=== PATIENT | male | born 1960 | race Caucasian/White ===

== ENCOUNTER 2019-01-31 06:24 | Emergency (ER) | payer BC ==
[~2019-01-31] VITALS: Ht 175.3 cm; Wt 117.9 kg
--- OUTSIDE RECORDS SUMMARY | ~2019-01-31 | XMS | Clinical Summary ---
Demographics + + + | Address | [address] [place] [address] | | | [place] [address] | + + + | Home Phone | | + + + | Preferred Language | Unknown | + + + | Marital Status | | + + + | Congregational Affiliation | Unknown | + + + | Race | Unknown | + + + | Ethnic Group | Unknown | + + + Author + + + | Author | [facility] | | | and [place] | + + + | Organization | [facility] | | | and [place] | + + + | Address | Unknown | + + + | Phone | Unavailable | + + + Support + + +---------+ + | Name | Relationship | Address | Phone | + + +---------+ + | Tata Maza ECON | Unknown | | + + +---------+ + Care Team Providers + +------+ + | Care Apparel Manufacture Instructor Name | Role | Phone | + +------+ + | Quinn Gabriel MD | PCP | | + +------+ + Allergies + + + + + + | Active Allergy | Reactions | Severity | Noted | Comments | | | | | Date | | + + + + + + | Meperidine | | | 06/28/19 | | | | | | 17 | | + + + + + + | Morphine | | | 06/28/19 | | | | | | 17 | | + + + + + + Medications + + + +---------+------+------+-------+ | Medication | Sig | Dispensed | Refills | Star | End | Statu | | | | | | t | Date | s | | | | | | Date | | | + + + +---------+------+------+-------+ | atorvaSTATin | TK 1 T PO QD | | 2 | 03/1 | | Activ | | (LIPITOR) 10 mg | | | | 5/20 | | e | | tablet | | | | 17 | | | + + + +---------+------+------+-------+ | Blood Glucose | USE DIRECTED | | 0 | 04/1 | | Activ | | Monitoring Suppl | | | | 1/20 | | e | | (ONE TOUCH ULTRA 2) | | | | 17 | | | | w/Device KIT | | | | | | | + + + +---------+------+------+-------+ | doxycycline | TK 1 C PO BID | | 3 | 03/2 | | Activ | | (VIBRAMYCIN) 100 mg | | | | /20 | | e | | capsule | | | | 17 | | | + + + +---------+------+------+-------+ | glimepiride | TK 1 T PO BID | | 2 | 03/1 | | Activ | | (AMARYL) 4 mg tablet | | | | 20 | | e | | | | | | 17 | | | + + + +---------+------+------+-------+ | ONE TOUCH ULTRA | USE TO TEST BLOOD | | 3 | 04/1 | | Activ | | TEST strip | GLUCOSE TID | | | /20 | | e | | | | | | 17 | | | + + + +---------+------+------+-------+ | HUMULIN 70/30 | Inject 50 Units | | 0 | 04/2 | | Activ | | KWIKPEN (70-30) 100 | under the skin 2 | | | 0/20 | | e | | UNIT/ML injection | times daily (before | | | 17 | | | | pen | meals). | | | | | | + + + +---------+------+------+-------+ | losartan (COZAAR) | TK 1 T PO QD | | 2 | 03/1 | | Activ | | 100 MG tablet | | | | 5/20 | | e | | | | | | 17 | | | + + + +---------+------+------+-------+ | metFORMIN | TK 2 TS PO BID | | 2 | 03/1 | | Activ | | (GLUCOPHAGE-XR) 500 | | | | 5/20 | | e | | mg 24 hr tablet | | | | 17 | | | + + + +---------+------+------+-------+ | omeprazole | TK 2 CS PO ONCE D | | 3 | 02/2 | | Activ | | (PRILOSEC) 20 mg | | | | 7/20 | | e | | capsule | | | | 17 | | | + + + +---------+------+------+-------+ | pioglitazone | TK 1 T PO QD | | 3 | 03/2 | | Activ | | (ACTOS) 45 mg tablet | | | | 20 | | e | | | | | | 17 | | | + + + +---------+------+------+-------+ | tamsulosin | TK 1 C PO BID | | 11 | 03/2 | | Activ | | (FLOMAX) 0.4 mg CAPS | | | | 20 | | e | | | | | | 17 | | | + + + +---------+------+------+-------+ | traZODone | TK 1 TO 2 TS PO QHS | | 3 | 04/1 | | Activ | | (DESYREL) 100 mg | PRF INSOMNIA | | | 20 | | e | | tablet | | | | 17 | | | + + + +---------+------+------+-------+ | aspirin 325 mg | Take 325 mg by mouth | | 0 | | | Activ | | tablet | Daily. | | | | | e | + + + +---------+------+------+-------+ | ibuprofen | Take 800 mg by mouth | | 0 | | | Activ | | (ADVIL,MOTRIN) 800 | every 6 hours as | | | | | e | | MG tablet | needed for Pain. | | | | | | + + + +---------+------+------+-------+ | phentermine | Take 37.5 mg by | | 0 | | | Activ | | (ADIPEX-P) 37.5 mg | mouth every morning | | | | | e | | tablet | (before breakfast). | | | | | | + + + +---------+------+------+-------+ | sildenafil | Take 100 mg by mouth | | 0 | | | Activ | | (VIAGRA) 100 MG | as needed for | | | | | e | | tablet | Erectile | | | | | | | | Dysfunction. | | | | | | + + + +---------+------+------+-------+ | Continuous Blood | USE DAILY | | 3 | 12/1 | | Activ | | Gluc Sensor | DIRECTED | | | 3/20 | | e | | (FREESTYLE ELIANA 14 | | | | 18 | | | | DAY SENSOR) MISC | | | | | | | + + + +---------+------+------+-------+ | Continuous Blood | USE DIRECTED | | 11 | 12/ | | Activ | | Gluc Ict Customer Support Officer | | | | 20 | | e | | (FREESTYLE ELIANA 14 | | | | 18 | | | | DAY READER) EDWARD | | | | | | | + + + +---------+------+------+-------+ | ASPIRIN LOW DOSE | ORACLE PROGRAMMER 1 T PO D | | 3 | 12/ | | Activ | | 81 MG chewable | | | | 3/20 | | e | | tablet | | | | 18 | | | + + + +---------+------+------+-------+ | testosterone | INJECT 1 ML IN THE | | 0 | 11/1 | | Activ | | cypionate | MUSCLE Q 2 WEEKS | | | 3/20 | | e | | (DEPO-TESTOSTERONE) | | | | 18 | | | | 200 mg/mL injection | | | | | | | + + + +---------+------+------+-------+ | testosterone | Daily. | | 0 | 01/1 | | Activ | | (ANDROGEL PUMP) | | | | 1/20 | | e | | 20.25 mg/1.25 g | | | | 19 | | | | actuation (1.62%) | | | | | | | | gel | | | | | | | + + + +---------+------+------+-------+ | TRULICITY 1.5 | Once a week. | | 0 | 01/2 | | Activ | | MG/0.5ML injection | | | | 1/20 | | e | | | | | | 19 | | | + + + +---------+------+------+-------+ Active Problems + + + | Problem | Noted Date | + + + | Insulin dependent diabetes mellitus | 06/27/2016 | + + + Immunizations + + + + | Name | Administration Dates | Next Due | + + + + | INFLUENZA PF | 12/30/2016, 12/05/2015 | | | TRIVALENT(PED/ADOL/A | | | | DULT), PSKT | | | + + + + Family History + +------+--------+ + | Relation | Name | Status | Comments | + +------+--------+ + | Daughter | | Alive | | + +------+--------+ + Social History + + + +--------+ + | Tobacco Use | Types | Packs/Day | Years | Date | | | | | Used | | + + + +--------+ + | Former Smoker | Cigarettes | 1 | 30 | Quit: 05/12/2008 | + + + +--------+ + + +---+---+---+ | Smokeless Tobacco: | | | | | Never Used | | | | + +---+---+---+ + + +---------+ + | Alcohol Use | Drinks/Week | oz/Week | Comments | + + +---------+ + | No | | | | + + +---------+ + + + + | Sex Assigned at | Date Recorded | | | | + + + | Not on file | | + + + + + + + | Job Start Date | Occupation | Industry | + + + + | Not on file | Not on file | Not on file | + + + + + + + + | Travel History | Travel Start | Travel End | + + + + + + | No recent travel history available. | + + Last Filed Vital Signs + + + + + | Vital Sign | Reading | Time Taken | Comments | + + + + + | Blood Pressure | 134/76 | 05/12/2018 3:31 PM | | | | | PDT | | + + + + + | Pulse | 109 | 05/12/2018 3:31 PM | | | | | PDT | | + + + + + | Temperature | 36.8 C (98.2 F) | 05/12/2018 3:31 PM | | | | | PDT | | + + + + + | Respiratory Rate | 18 | 05/12/2018 3:31 PM | | | | | PDT | | + + + + + | Oxygen Saturation | 96% | 05/12/2018 3:31 PM | | | | | PDT | | + + + + + | Inhaled Oxygen | - | - | | | Concentration | | | | + + + + + | Weight | 123.9 kg (273 lb 2.4 | 05/12/2018 3:31 PM | | | | oz) | PDT | | + + + + + | Height | 175.3 cm (5' 9") | 02/17/2018 3:02 PM | | | | | PST | | + + + + + | Body Mass Index | 40.34 | 02/17/2018 3:02 PM | | | | | PST | | + + + + + Plan of Treatment + + + + + | Health Maintenance | Due Date | Last Done | Comments | + + + + + | Hepatitis C | | | | | Screening | 0 | | | + + + + + | Vaccine: | | | | | Pneumococcal 19-64 | 6 | | | | (1 of 1 - PPSV23) | | | | + + + + + | Diabetic Eye Exam | | | | | | 8 | | | + + + + + | Diabetic Foot Exam | | | | | | 8 | | | + + + + + | Hemoglobin A1c | | | | | Screening | 8 | | | + + + + + | Vaccine: | | | | | Dtap/Tdap/Td (1 - | 9 | | | | Tdap) | | | | + + + + + | Vaccine: Zoster (1 | | | | | of 2) | 0 | | | + + + + + | Lung Cancer | | | | | Screening | 5 | | | + + + + + | Vaccine: Influenza | | 12/30/2016, 12/05/2015 | | | (#1) | 9 | | | + + + + + | Colorectal Cancer | | 06/30/2016 | | | Screening | 7 | | | | (Colonoscopy) | | | | + + + + + Results Not on filefrom Last 3 Months Insurance +-------+--------+ +--------+-------+---------+------+ | Payer | Benefi | Subscriber | Effect | Phone | Address | Type | | | t Plan | ID | piper | | | | | | / | | Dates | | | | | | Group | | | | | | +-------+--------+ +--------+-------+---------+------+ | BCBS | BCBS | [id number] | 02/16/19 | | | PPO | | | [employer]ER[employer] | | 16-Pre | | | | | | L FEP | | sent | | | | +-------+--------+ +--------+-------+---------+------+ + +--------+ +--------+ + + | Guarantor Name | Accoun | Relation to | Date | Phone | Billing Address | | | t Type | Patient | of | | | | | | | | | | + +--------+ +--------+ + + | Quinn Mederos | Person | Self [birth year] | [address] [place] [address] | | Arianna | al/Fam | | 1960 | [phone] | [place] [address] | | | david | | | 7 (Home) | | + +--------+ +--------+ + + Advance Directives + + + + + | Type | Date Recorded | Patient | Explanation | | | | Pulverizing And Sifting Operator | | + + + + + | Power of | | | | | Composite Worker | | | | + + + + + | Advance | 06/30/2016 5:52 | | | | Directive | AM | | | + + + + +
--- OUTSIDE RECORDS SUMMARY | ~2019-01-31 | XMS | Encounter Summary ---
Demographics + + + | Address | [address] [place] [address] | | | [place] [address] | + + + | Home Phone | | + + + | Preferred Language | Unknown | + + + | Marital Status | | + + + | Episcopalian Affiliation | Unknown | + + + | Race | Unknown | + + + | Ethnic Group | Unknown | + + + Author + + + | Author | [facility] | | | and [place] | + + + | Organization | [facility] | | | and [...] Team Providers + +------+ + | Care Cue Selector Name | Role | Phone | + +------+ + | Quinn Gabriel MD | PCP | | + +------+ + Reason for Visit + + + | Reason | Comments | + + + | Shoulder Pain | Last seen 02-17-2018 left shoulder pain | + + + Encounter Details +--------+---------+ + + + | Date | Type | Department | Care Team | Description | +--------+---------+ + + + | 05/12/ | Office | [facility] | Taran Samuels MD | Tendinopathy of left | | 2019 | Visit | [facility] | [address] | rotator cuff | | | | [address] | [place] | (Primary Dx); | | | | [place] | [id number] | Subacromial bursitis | | | | [address] | | | | | | [phone] | | | +--------+---------+ + + + Social History + + + +--------+ [...] recent travel history available. | + + documented as of this encounter Last Filed Vital Signs + + + [...] + + + + | Height | - | - | | + + + + + | Body Mass Index | 40.34 | 02/17/2018 3:02 PM | | | | | PST | | + + + + + documented in this encounter Progress Notes Kurt Reyez, PT - 05/12/2018 3:30 PM PDTIncident To Physical Therapy Treatment Note Date: 05/12/2018 Timed Treatment Codes: 15 minutes Subjective: Quinn presents to primary care provider visit today with complaints of right sided occipi shira pain and right shoulder pain with prolonged sitting. Objective: Pertinent objective PT findings include: Cervical AROM: Within Functional limits with no pain provocation Signs and symptoms consistent with: Suboccipital headache from potential myodural bridge ag gravation Treatment today consisted of: Patient Education / Self Fdc Management: Educated pt about the clinical presentation seen today. Educated about the how and why of performing the HEP given below. Posture education Therapeutic Exercise: Patient instructed in the following activities for home: Issued Physical Therapy Home program of: Access Code: [email or web address] URL: [email or web address] Date: 05/12/2018 Prepared by: Phil Nance Exercises Supine Suboccipital Release with Tennis Balls - 1 reps - 1 sets - perform 1-3' hold - 1x da david - 7x weekly Seated Cervical Retraction - 10 reps - 2-3 sets - 2x daily - 7x weekly Standing Cervical Retraction with Sidebending - 10 reps - 2-3 sets - 2x daily - 7x weekly Standing Scapular Retraction - 10 reps - 2-3 sets - 2x daily - 7x weekly Shoulder External Rotation and Scapular Retraction with Resistance - 10 reps - 2-3 sets - 2 x daily - 7x weekly Manual Therapy: Below treatment performed below to help manage and alleviate patient sympto ms. None today Plan: Considerations for follow up: -Continue at home with recommendations from visit, patient would benefit from full physical therapy evaluation and established plan of care for further treatment, patient declines fur ther physical therapy intervention at this time, patient provided with information on how to get in contact with physical therapy services and Patient would prefer to be seen at PT in [facility] This evaluation and treatment was under the direct supervision of Shaheed Nance DPT. Electronically signed by: Kurt Reyez, PT Student, 05/12/2018 17:14 Patient Name: Quinn Severinolle/: 1960/ Litzy Kothari MD - 05/12/2018 3:30 PM PDT . Sports Medicine Visit Assessment & Plan: 1. Tendinopathy of left rotator cuff 2. Subacromial bursitis Patient with significantly improved left-sided rotator cuff tendinitis/tendinopathy and sub acromial bursitis following an injection 8 weeks ago. Patient is interested in continued re habilitation and I believe he would benefit from education today with physical therapy in [facility] office. Physical therapy treatment room consult to educate in self care, instruct in therapeutic ex ercises, and use of manual therapy as indicated. Use of modalities for pain and swelling red uction when appropriate. Patient may continue with oral anti-inflammatories at home as needed for pain but we discus sed the strength and biomechanical changes that are required to maintain improvement followi ng a cortisone injection. I will see the patient back on an as-needed basis in 6 to 8 weeks if he has return of his symptoms but would likely encourage the patient to focus on improve ment of the anterior shoulder roll and activation/strengthening of the mid back and parascap ular musculature. Home exercise program provided will focus on scapular retraction and decr easing the load over the anterior shoulder and biceps. Of note, symptoms in the trapezius and neck are prominent bilaterally with more significant symptoms on the right today. I also asked the PT to discuss neck stiffness and trapezius c ompensation that may lead or be connected to chronic rotator cuff pathology. Total time today is 25 minutes, >75% of which is in counseling and coordination of care reg arding the above issue(s). Education on appropriate biomechanics and ongoing need for relia ble home exercise program to maintain improvement after the injection was provided. All of the patients questions were addressed and answered at time of the office visit. Kushal nk you for allowing us to share in the care of your very pleasant patient. Subjective: CC: Shoulder Pain (Last seen 02-17-2018 left shoulder pain ) HPI: Quinn Mederos is a 58 y.o. male seen at the request of Brad Olivas for evaluation of left shoulder pain. Patient last seen 02/17/2018 where he underwent a lef t shoulder cortisone injection under ultrasound guidance. Patient reports that he has been essentially pain-free since that time. He has been able to return to his desired day-to-day activities without limitation. He is required significantly less anti-inflammatories for t he pain. Overhead activities such as dressing and reaching above his had similar to the activity kushal t caused the initial injury and ongoing persistent pain over the last 3 years have become m ore tolerable. Still requires some modification due to weakness with overhead activities. Is open to activity modification and home exercise program for strength intervention. PMH: Past Medical History: Diagnosis Date Allergic rhinitis Muro's esophagus BPH (benign prostatic hyperplasia) Diabetes mellitus type 2, uncontrolled (HCC) Esophageal reflux Essential hypertension History of colonic polyps Hyperlipidemia Hypogonadism male Restless leg syndrome PSH: Past Surgical History: Procedure Laterality Date COLONOSCOPY N/A 06/30/2016 Procedure: COLONOSCOPY; Surgeon: Mc Call MD; Location: [facility] LASIK TONSILLECTOMY UPPER GASTROINTESTINAL ENDOSCOPY N/A 06/30/2016 Procedure: EGD; Surgeon: Mc Call MD; Location: [facility] SocHx: Social History Occupational History Not on file Tobacco Use Smoking status: Former Smoker Packs/day: 1.00 Years: 30.00 Pack years: 30.00 Types: Cigarettes Last attempt to quit: 05/12/2008 Years since quittin.1 Smokeless tobacco: Never Used Substance and Sexual Activity Alcohol use: No Drug use: No Sexual activity: Not on file FMHx: History reviewed. No pertinent family history. Demerol [meperidine] and Morphine Outpatient Medications Prior to Visit Medication Sig Dispense Refill aspirin 325 mg tablet Take 325 mg by mouth Daily. ASPIRIN LOW DOSE 81 MG chewable tablet AUTO CLEANER 1 T PO D 3 atorvaSTATin (LIPITOR) 10 mg tablet TK 1 T PO QD 2 Blood Glucose Monitoring Suppl (ONE TOUCH ULTRA 2) w/Device KIT USE DIRECTED 0 Continuous Blood Gluc Oracle Distribution Consultant (FREESTYLE ELIANA 14 DAY READER) EDWARD USE DIRECTED 11 Continuous Blood Gluc Sensor (FREESTYLE ELIANA 14 DAY SENSOR) MISC USE DAILY DIRECTED 3 doxycycline (VIBRAMYCIN) 100 mg capsule TK 1 C PO BID 3 glimepiride (AMARYL) 4 mg tablet TK 1 T PO BID 2 HUMULIN 70/30 KWIKPEN (70-30) 100 UNIT/ML injection pen Inject 50 Units under the skin 2 times daily (before meals). ibuprofen (ADVIL,MOTRIN) 800 MG tablet Take 800 mg by mouth every 6 hours as needed for Pain. losartan (COZAAR) 100 MG tablet TK 1 T PO QD 2 metFORMIN (GLUCOPHAGE-XR) 500 mg 24 hr tablet TK 2 TS PO BID 2 omeprazole (PRILOSEC) 20 mg capsule TK 2 CS PO ONCE D 3 ONE TOUCH ULTRA TEST strip USE TO TEST BLOOD GLUCOSE TID 3 phentermine (ADIPEX-P) 37.5 mg tablet Take 37.5 mg by mouth every morning (before break fast). pioglitazone (ACTOS) 45 mg tablet TK 1 T PO QD 3 sildenafil (VIAGRA) 100 MG tablet Take 100 mg by mouth as needed for Erectile Dysfuncti on. tamsulosin (FLOMAX) 0.4 mg CAPS TK 1 C PO BID 11 testosterone (ANDROGEL PUMP) 20.25 mg/1.25 g actuation (1.62%) gel Daily. testosterone cypionate (DEPO-TESTOSTERONE) 200 mg/mL injection INJECT 1 ML IN THE MUSCL E Q 2 WEEKS 0 traZODone (DESYREL) 100 mg tablet TK 1 TO 2 TS PO QHS PRF INSOMNIA 3 TRULICITY 1.5 MG/0.5ML injection Once a week. Facility-Administered Medications Prior to Visit Medication Dose Route Frequency Provider Last Rate Last Dose albuterol 2.5 mg/3 mL nebulizer solution 2.5 mg 2.5 mg Nebulization Once PRN Roberto Mckeon MD albuterol-ipratropium (DUONEB) 2.5-0.5 mg/3 mL nebulizer solution 3 mL 3 mL Nebulizati on Once PRN Roberto Mckeon MD dextrose 50% injection 12.5-25 g 12.5-25 g Intravenous Q15 Min PRN Roberto monk MD fentaNYL (PF) injection 25-50 mcg 25-50 mcg Intravenous Q5 Min PRN Roberto monk MD ondansetron (ZOFRAN) injection 4 mg 4 mg Intravenous Once PRN Roberto Mckeon MD promethazine (PHENERGAN) (IV ONLY) injection 6.25 mg 6.25 mg Intravenous Q15 Min PRN Deysi Mckeon MD Review of Systems Constitutional: Negative for chills, fatigue and fever. HENT: Negative for rhinorrhea and sore throat. Eyes: Negative for discharge. Respiratory: Negative for cough and shortness of breath. Cardiovascular: Negative for chest pain. Gastrointestinal: Negative for abdominal pain, diarrhea, nausea and vomiting. Genitourinary: Negative for dysuria. Musculoskeletal: Positive for arthralgias and joint swelling. Skin: Negative for rash and wound. Neurological: Negative for dizziness, weakness and numbness. Psychiatric/Behavioral: Negative for decreased concentration. The patient is not nervous/an xious. Objective: BP 134/76 | Pulse 109 | Temp 36.8 C (98.2 F) (Temporal) | Resp 18 | Wt 123.9 kg (27 3 lb 2.4 oz) | SpO2 96% | BMI 40.34 kg/m Physical Exam Constitutional: He is oriented to person, place, and time. He appears well-developed and we ll-nourished. HENT: Head: Normocephalic and atraumatic. Right Ear: External ear normal. Left Ear: External ear normal. Nose: Nose normal. Eyes: Conjunctivae are normal. Right eye exhibits no discharge. Left eye exhibits no discha rge. Neck: Normal range of motion. Cardiovascular: Normal rate and intact distal pulses. Pulmonary/Chest: Effort normal. No respiratory distress. Abdominal: He exhibits no distension. Neurological: He is alert and oriented to person, place, and time. Skin: Skin is warm and dry. Psychiatric: He has a normal mood and affect. Left shoulder Exam Inspection: No gross deformity non-TTP Strength 5/5 Full AROM (-) Impingement Tests (-) O'iraida's Test (-) AC tenderness (-) Arm Cross-over Test. (-) Speeds test Radiology: Available imaging (left shoulder x-ray and MRI results) remain unavailable due t o being obtained at outside facility. Please excuse any word selection errors, misspellings, or grammatical errors related to the use of voice recognition software. documented in this encounter Plan of Treatment Not on filedocumented as of this encounter Visit Diagnoses + + | Diagnosis | + + | Tendinopathy of left rotator cuff - Primary | + + | Subacromial bursitis Other specified disorders of rotator cuff syndrome of shoulder | | and allied disorders | + + documented in this encounter"
--- OUTSIDE RECORDS SUMMARY | ~2019-01-31 | XMS | Encounter Summary ---
Demographics + + + | Address | [address] [place] [address] | | | [place] [address] | + + + | Home Phone | | + + + | Preferred Language | Unknown | + + + | Marital Status | | + + + | Hoahaoism Affiliation | Unknown | + + + | Race | Unknown | + + + | Ethnic Group | Unknown | + + + Author + + + | Author | [facility] | | | and [place] | + + + | Organization | [facility] | | | [...] Team Providers + +------+ + | Care Chemical Engineering Technician Name | Role | Phone | + +------+ + PCP | Unavailable | + +------+ + Encounter Details +--------+ + + + + | Date | Type | Department | Care Team | Description | +--------+ + + + + | 07/06/ | [facility] | [facility] | Sidd[place], | | | 2007 | Encounter | [facility] | Heber Allen MD [address] | | | | | [place] [address] | [facility] | | | | | [place] | [place] [address] | | | | | [address] | [phone] | | | | | [phone] | | | +--------+ + + + + Social History + +-------+ +--------+------+ | Tobacco Use | Types | Packs/Day | Years | Date | | | | | Used | | + +-------+ +--------+------+ | Never Assessed | | | | | + +-------+ +--------+------+ + + + | Sex Assigned at [...] + + documented as of this encounter Plan of Treatment Not on filedocumented as of this encounter Visit Diagnoses Not on filedocumented in this encounter"
--- OUTSIDE RECORDS SUMMARY | ~2019-01-31 | XMS | Encounter Summary ---
Demographics + + + | Address | [address] [place] [address] | | | [place] [address] | + + + | Home Phone | | + + + | Preferred Language | Unknown | + + + | Marital Status | | + + + | Bahai Affiliation | Unknown | + + + | Race | Unknown | + + + | Ethnic Group | Unknown | + + + Author + + + | Author | [facility] | | | and [place] | + + + | Organization | [facility] | | | and [...] Team Providers + +------+ + | Care Rubber Goods Tester Name | Role | Phone | + +------+ + | Quinn Gabriel MD | PCP | | + +------+ + Reason for Visit Auth/Cert +--------+--------+ + + + + | Status | Reason | Specialty | Diagnoses / | Referred By | Referred To | | | | | Procedures | Contact | Contact | +--------+--------+ + + + + | | | | Diagnoses | | | | | | | Muro's | | | | | | | esophagus | | | | | | | without | | | | | | | dysplasia | | | | | | | Colon cancer | | | | | | | screening | | | | | | | Family | | | | | | | history of | | | | | | | malignant | | | | | | | neoplasm of | | | | | | | digestive | | | | | | | organ | | | | | | | Family | | | | | | | history of | | | | | | | malignant | | | | | | | neoplasm of | | | | | | | digestive | | | | | | | organ | | | | | | | [Z80.0]Famil | | | | | | | y history of | | | | | | | malignant | | | | | | | neoplasm of | | | | | | | digestive | | | | | | | organ | | | | | | | [Z80.0]Paradox | | | | | | | tt's | | | | | | | esophagus | | | | | | | without | | | | | | | dysplasia | | | | | | | [K22.70] | | | | | | | Procedures | | | | | | | NM | | | | | | | COLONOSCOPY | | | | | | | W/BIOPSY | | | | | | | SINGLE/MULTI | | | | | | | PLE NM | | | | | | | COLONOSCOPY | | | | | | | FLX DX | | | | | | | W/COLLJ SPEC | | | | | | | WHEN PFRMD | | | | | | | NM COLSC | | | | | | | FLX W/RMVL | | | | | | | OF TUMOR | | | | | | | POLYP LESION | | | | | | | SNARE TQ | | | | | | | NM | | | | | | | ESOPHAGOGAST | | | | | | | RODUODENOSCO | | | | | | | PY TRANSORAL | | | | | | | DIAGNOSTIC | | | | | | | NM EGD | | | | | | | TRANSORAL | | | | | | | BIOPSY | | | | | | | SINGLE/MULTI | | | | | | | PLE EGD | | | | | | | COLONOSCOPY | | | +--------+--------+ + + + + Encounter Details +--------+ + + + + | Date | Type | Department | Care Team | Description | +--------+ + + + + | 06/30/ | [facility] | [facility] | Mc Call MD | | | 2017 | Encounter | MED CTR [facility] INTRA OP | [address] | | | | | [address] | [place] | | | | | [place] | [address] | | | | | [address] | [phone] | | | | | [phone] | | | +--------+ + + + [...] + + + | Blood Pressure | 125/88 | 06/30/2016 8:45 AM | | | | | PDT | | + + + + + | Pulse | 66 | 06/30/2016 8:45 AM | | | | | PDT | | + + + + + | Temperature | 36.1 C (97 F) | 06/30/2016 7:59 AM | | | | | PDT | | + + + + + | Respiratory Rate | 14 | 06/30/2016 8:45 AM | | | | | PDT | | + + + + + | Oxygen Saturation | 97% | 06/30/2016 8:45 AM | | | | | PDT | | + + + + + | Inhaled Oxygen | - | - | | | Concentration | | | | + + + + + | Weight | 118.4 kg (261 lb) | 06/30/2016 6:08 AM | | | | | PDT | | + + + + + | Height | 175.3 cm (5' 9") | 06/30/2016 6:08 AM | | | | | PDT | | + + + + + | Body Mass Index | 38.54 | 06/30/2016 6:08 AM | | | | | PDT | | + + + + + documented in this encounter Medications at Time of Discharge + + + +---------+ + + | Medication | Sig | Dispensed | Refills | Start | End Date | | | | | | Date | | + + + +---------+ + + | aspirin 325 mg | Take 325 mg by mouth | | 0 | | | | tablet | Daily. | | | | | + + + +---------+ + + | atorvaSTATin | TK 1 T PO QD | | 2 | 05/01/19 | | | (LIPITOR) 10 mg | | | | 17 | | | tablet | | | | | | + + + +---------+ + + | Blood Glucose | USE DIRECTED | | 0 | 05/28/19 | | | Monitoring Suppl | | | | 17 | | | (ONE TOUCH ULTRA 2) | | | | | | | w/Device KIT | | | | | | + + + +---------+ + + | doxycycline | TK 1 C PO BID | | 3 | 05/13/19 | | | (VIBRAMYCIN) 100 mg | | | | 17 | | | capsule | | | | | | + + + +---------+ + + | glimepiride | TK 1 T PO BID | | 2 | 05/02/19 | | | (AMARYL) 4 mg tablet | | | | 17 | | + + + +---------+ + + | HUMULIN 70/30 | Inject 50 Units | | 0 | 06/06/19 | | | KWIKPEN (70-30) 100 | under the skin 2 | | | 17 | | | UNIT/ML injection | times daily (before | | | | | | pen | meals). | | | | | + + + +---------+ + + | ibuprofen | Take 800 mg by mouth | | 0 | | | | (ADVIL,MOTRIN) 800 | every 6 hours as | | | | | | MG tablet | needed for Pain. | | | | | + + + +---------+ + + | losartan (COZAAR) | TK 1 T PO QD | | 2 | 05/01/19 | | | 100 MG tablet | | | | 17 | | + + + +---------+ + + | metFORMIN | TK 2 TS PO BID | | 2 | 05/01/19 | | | (GLUCOPHAGE-XR) 500 | | | | 17 | | | mg 24 hr tablet | | | | | | + + + +---------+ + + | omeprazole | TK 2 CS PO ONCE D | | 3 | 04/14/19 | | | (PRILOSEC) 20 mg | | | | 17 | | | capsule | | | | | | + + + +---------+ + + | ONE TOUCH ULTRA | USE TO TEST BLOOD | | 3 | 05/28/19 | | | TEST strip | GLUCOSE TID | | | 17 | | + + + +---------+ + + | phentermine | Take 37.5 mg by | | 0 | | | | (ADIPEX-P) 37.5 mg | mouth every morning | | | | | | tablet | (before breakfast). | | | | | + + + +---------+ + + | pioglitazone | TK 1 T PO QD | | 3 | 05/13/19 | | | (ACTOS) 45 mg tablet | | | | 17 | | + + + +---------+ + + | sildenafil | Take 100 mg by mouth | | 0 | | | | (VIAGRA) 100 MG | as needed for | | | | | | tablet | Erectile | | | | | | | Dysfunction. | | | | | + + + +---------+ + + | tamsulosin | TK 1 C PO BID | | 11 | 05/07/19 | | | (FLOMAX) 0.4 mg CAPS | | | | 17 | | + + + +---------+ + + | traZODone | TK 1 TO 2 TS PO QHS | | 3 | 05/28/19 | | | (DESYREL) 100 mg | PRF INSOMNIA | | | 17 | | | tablet | | | | | | + + + +---------+ + + documented as of this encounter Plan of Treatment + + +--------+ + + | Name | Type | Priori | Associated Diagnoses | Order Schedule | | | | ty | | | + + +--------+ + + | Oxygen Therapy | Respiratory | Routin | | Until Discontinued | | | Care | e | | until discontinued | | | | | | starting 06/30/2016 | + + +--------+ + + | Extubation per PACU | Respiratory | Routin | | One Time for 1 | | policy | Care | e | | Occurrences starting | | | | | | 06/30/2016 until | | | | | | 06/30/2016 | + + +--------+ + + documented as of this encounter Procedures + +--------+ + + + | Procedure Name | Priori | Date/Time | Associated Diagnosis | Comments | | | ty | | | | + +--------+ + + + | POC GLUCOSE | Routin | 06/30/2016 | | Results for this | | | e | 8:26 AM | | procedure are in the | | | | PDT | | results section. | + +--------+ + + + | COLONOSCOPY | | 06/30/2016 | Muro's | | | | | 7:24 AM | esophagus without | | | | | PDT | dysplasia Colon | | | | | | cancer screening | | | | | | Family history of | | | | | | malignant neoplasm | | | | | | of digestive organ | | + +--------+ + + + | EGD | | 06/30/2016 | Muro's | | | | | 7:24 AM | esophagus without | | | | | PDT | dysplasia Colon | | | | | | cancer screening | | | | | | Family history of | | | | | | malignant neoplasm | | | | | | of digestive organ | | + +--------+ + + + | POC GLUCOSE | Routin | 06/30/2016 | | Results for this | | | e | 6:31 AM | | procedure are in the | | | | PDT | | results section. | + +--------+ + + + | SURGICAL PATHOLOGY | Routin | 06/30/2016 | | Results for this | | EXAM | e | 12:00 AM | | procedure are in the | | | | PDT | | results section. | + +--------+ + + + documented in this encounter Results POC Glucose (06/30/2016 8:26 AM PDT) + +---------+ + + + | Component | Value | Ref Range | Performed | Pathologist | | | | | At | Signature | + +---------+ + + + | Glucose, | 198 (H) | 70 - 150 mg/dL | [facility] | | | P[facility] | | | [facility] | [facility] | | | [facility] - | | | | | | LABORATORY | | + +---------+ + + + + + | Specimen | + + | Blood | + + + + + + + | Performing | Address | City/State/Zipcode | Phone Number | | Organization | | | | + + + + + | [facility] | [address] | [place] | [phone] | | [facility] | | [address] | | | - LABORATORY | | | | + + + + + POC Glucose (06/30/2016 6:31 AM PDT) + +---------+ + + + | Component | Value | Ref Range | Performed | Pathologist | | | | | At | Signature | + +---------+ + + + | Glucose, | 205 (H) | 70 - 150 mg/dL | [facility] | [facility] | | | | | | [facility] | | | | | | C[facility] - | | | | | | LABORATORY | | + +---------+ + + + + + | Specimen | + + | Blood | + + + + + + + | Performing | Address | City/State/Zipcode | Phone Number | | Organization | | | | + + + + + | [facility] | [address] | [place], [place] | [phone] | | [facility] | | [address] | | | - LABORATORY | | | | + + + + + Surgical Pathology Exam (06/30/2016 12:00 AM PDT) + + | Specimen | + + | | + + + + + | Narrative | Performed At | + + + | SPECIMEN(S): A GASTRIC BIOPSY SPECIMEN(S): B DISTAL ESOPHAGEAL | [facility] | | BIOPSY SPECIMEN(S): C SIGMOID POLYP SPECIMEN SOURCE: A. GASTRIC | [facility] | | BIOPSY B. DISTAL ESOPHAGEAL BIOPSY C. SIGMOID POLYP CLINICAL | | | HISTORY: A) H. pylori. B) History of Muro's. C) Polyp. 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 These findings, together with the gross | | | examination, support the pathologic diagnosis. Three levels into | | | blocks A and B are prepared and examined. 9 levels completely through | | | the block C are prepared and examined. FINAL PATHOLOGIC | | | DIAGNOSIS: A. Stomach, biopsy: - Benign gastric mucosa with | | | slight fundic gland dilatation suggestive of proton pump inhibitor | | | effect. - Negative for inflammation, atrophy, intestinal metaplasia | | | or dysplasia. - Negative for Helicobacter pylori with HE stain. | | | B. 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 - Negative for dysplasia. - Chronic esophagitis is | | | in the background. - Squamous mucosa is absent. C. Colon, | | | sigmoid, polypectomy: - Mildly hyperplastic colonic mucosa | | | consistent with early hyperplastic polyp. - Negative for adenoma. | | | [facility]:smn:C2NR GROSS DESCRIPTION: A. The specimen, received in | | | formalin, labeled "Rosa M, A.," further designated "gastric | | | biopsy," consists of four anderson tissues averaging 0.3 cm. Submitted in | | | cassette (A1). B. The specimen, received in formalin, labeled | | | "Rosa M, B.," further designated "distal esophagus," consists of six | | | anderson-ash tissues averaging 0.2 cm. Submitted in cassette (B1). | | | C. The specimen, received in formalin, labeled "Rosa M, C.," | | | further designated "sigmoid polyp," consists of a 0.3 cm, anderson, | | | polypoid tissue. Submitted intact in cassette (C1). tn:NICHOLE: | | | PERFORMING LABORATORY: The technical component and professional | | | interpretation were performed by [facility], [id number] | | [place] [address] (Director Of Quantitative Research: Anival Fernandez | | | Carolyn Dial; [facility]#: [id number]). Diagnostician: Nirmal Salinas | | | Benny MARINO Pathologist Electronically Signed 07/01/2016 | | + + + + +---------+ + + | Performing | Address | City/State/Zipcode | Phone Number | | Organization | | | | + +---------+ + + | [facility] | | | | | [facility] | | | | + +---------+ + + documented in this encounter Visit Diagnoses Not on filedocumented in this encounter Administered Medications + +--------+---------+------+------+------+ | Medication Order | MAR | Action | Dose | Rate | Site | | | Action | Date | | | | + +--------+---------+------+------+------+ + +---+ | albuterol 2.5 mg/3 mL nebulizer | | | solution 2.5 mg 2.5 mg, | | | Nebulization, ONCE PRN, Wheezing, | | | Starting 06/30/16 at 1317, | | | For 1 dose, Notify anesthesia if | | | patient is wheezing and does not | | | have a history of asthma or COPD | | | or current smoking., | | | Recovery/Phase I | | + +---+ | | | + +---+ | albuterol-ipratropium (DUONEB) | | | 2.5-0.5 mg/3 mL nebulizer | | | solution 3 mL 3 mL, | | | Nebulization, ONCE PRN, Wheezing, | | | Shortness of Breath, Starting | | | 06/30/16 at 1317, For 1 dose, | | | Recovery/Phase I | | + +---+ | | | + +---+ | dextrose 50% injection 12.5-25 | | | g 12.5-25 g, Intravenous, EVERY | | | 15 MIN PRN, Low Blood Sugar, For | | | hypoglycemia. Give 12.5g (25ml) | | | IV if blood glucose 50-69 | | | mg/dL. Give 25g (50ml) IV if | | | blood glucose < 50, Starting Mon | | | 06/30/16 at 1317, Give over 2 min. | | | Repeat in 15 min if blood | | | glucose remains < 70 mg/dL. | | | Repeat blood glucose in 30 min | | | once blood glucose > 70., | | | Recovery/Phase I | | + +---+ | | | + +---+ | fentaNYL (PF) injection 25-50 | | | mcg 25-50 mcg, Intravenous, | | | EVERY 5 MIN PRN, Pain, Starting | | | 06/30/16 at 1317, Maximum | | | total dose 250 mcg. PACU IV | | | Narcotic Priority: Only use | | | fentanyl for immediate post-op | | | pain (one dose) or breakthrough | | | pain when any other IV narcotics | | | ordered have been ineffective (if | | | ordered). If both morphine and | | | hydromorphone are ordered, use | | | morphine first, and use | | | hydromorphone if morphine | | | ineffective., Recovery/Phase I | | + +---+ | | | + +---+ | ondansetron (ZOFRAN) injection | | | 4 mg 4 mg, Intravenous, ONCE | | | PRN, Nausea, Starting 06/30/16 | | | at 1317, For 1 dose, | | | Recovery/Phase I | | + +---+ | | | + +---+ | promethazine (PHENERGAN) (IV | | | ONLY) injection 6.25 mg 6.25 mg, | | | Intravenous, EVERY 15 MIN PRN, | | | Nausea, Vomiting, Starting Mon | | | 06/30/16 at 1317, For 4 doses, | | | TAKE PRECAUTIONS WHEN | | | ADMINISTERING Dilute to 10-20mL | | | with NS. Give over 2-3 minutes | | | into large vein. Use ondansetron | | | first if both are ordered., | | | Recovery/Phase I | | + +---+ | | | + +---+ +---+ | | +---+ + +---------+ +------+------+------+ | Medication Order | MAR | Action | Dose | Rate | Site | | | Action | Date | | | | + +---------+ +------+------+------+ | lactated ringers (LR) infusion | New Bag | 07/01/19 | | | | | at 10-100 mL/hr, Intravenous, | | 17 7:15 | | | | | CONTINUOUS, Starting 06/30/16 | | AM PDT | | | | | at 0645, TKO., Pre-op | | | | | | + +---------+ +------+------+------+ +---------+ +---+-------+---+ | New Bag | 07/01/19 | | 100 | | | | 17 6:30 | | mL/hr | | | | AM PDT | | | | +---------+ +---+-------+---+ +---+---+ | | | +---+---+ documented in this encounter
--- OUTSIDE RECORDS SUMMARY | ~2019-01-31 | XMS | Encounter Summary ---
Demographics + + + | Address | [address] [place] [address] | | | [place] [address] | + + + | Home Phone | | + + + | Preferred Language | Unknown | + + + | Marital Status | | + + + | Judaism Affiliation | Unknown | + + + | Race | Unknown | + + + | Ethnic Group | Unknown | + + + Author + + + | Author | [facility] | | | and [place] | + + + | Organization | [facility] | | [...] Team Providers + +------+ + | Care Fire Prevention Officer Name | Role | Phone | + +------+ + PCP | Unavailable | + +------+ + Encounter Details +--------+ + + + + | Date | Type | Department | Care Team | Description | +--------+ + + + + | 11/24/ | Hospital | [facility] | Conversion | Shoulder pain, right | | 2013 | Encounter | [facility] | Transaction, | | | | | [address] | Provider Unknown | | | | | [place] | | | | | | [phone] | (Fax) | | | | | [phone] | | | +--------+ + + + [...] Not on filedocumented as of this encounter Procedures + +--------+ + + + | Procedure Name | Priori | Date/Time | Associated Diagnosis | Comments | | | ty | | | | + +--------+ + + + | MRI SHOULDER RIGHT | Routin | 11/24/2013 | | Results for this | | WO CONTRAST | e | 12:52 PM | | procedure are in the | | | | PDT | | results section. | + +--------+ + + + documented in this encounter Results MRI Shoulder Right wo Contrast (11/24/2013 12:52 PM PDT) + + | Specimen | + + | | + + + + + | Impressions | Performed At | + + + | 1. Subscapularis tear at the myotendinous junction measuring | | | 1.6 cm x 1.2 cm. The tear involves the superior subscapularis fibers. | | | There are some intact fibers inferiorly. Biceps tendon remains within | | | the intertubercular groove. 2. Supraspinatus, infraspinatus and | | | teres minor are intact. 3. Degeneration of the posterior labrum. | | | | | + + + + + + | Narrative | Performed At | + + + | [facility] 1960 MRI SHOULDER RIGHT WO CONTRAST | | | 11/24/2013 12:52 PM HISTORY: Shoulder pain, right. COMPARISON: | | | None. TECHNIQUE: Imaging was performed on a 1.5 Uyen MRI system. | | | Multiplanar sequences according to a standard department protocol | | | were acquired without contrast. FINDINGS: Mild | | | acromioclavicular degeneration. Distal supraspinatus tendinosis. | | | No full-thickness tear. Subacromial subdeltoid bursal fluid consistent | | | with bursitis. Infraspinatus and teres minor tendons are intact. | | | Biceps tendon is intact. Subscapularis tendon is torn at the | | | superior myotendinous junction. The tear measures 1.6 cm x 1.2 cm and | | | involves the superior tendon fibers, there are some intact fibers | | | inferiorly. There is 1.2 cm of separation between the distal and | | | proximal subscapularis fibers. (05/26, 11/30, 08/28) Muscle bulk | | | of the rotator cuff is preserved. Cartilage of the glenoid and | | | humeral head is largely preserved. No full thickness defects. | | | Degeneration of the posterior labrum. No labral detachment. | | + + + + + | Procedure Note | + + | Saman, Rad Conversion - 10/01/2018 5:09 PM PDT [facility] [id number] SHOULDER | | RIGHT WO [id number]/9/2014 12:52 PM HISTORY: Shoulder pain, right. COMPARISON: None. | | TECHNIQUE:Imaging was performed on a 1.5 Uyen MRI system. Multiplanar sequences | | according to a standard department protocol were acquired without contrast. FINDINGS: | | Mild acromioclavicular degeneration. Distal supraspinatus tendinosis. No full-thickness | | tear. Subacromial subdeltoid bursal fluid consistent with bursitis. Infraspinatus and | | teres minor tendons are intact. Biceps tendon is intact. Subscapularis tendon is torn | | at the superior myotendinous junction. The tear measures 1.6 cm x 1.2 cm and involves | | the superior tendon fibers, there are some intact fibers inferiorly. There is 1.2 cm of | | separation between the distal and proximal subscapularis fibers. (05/26, 11/30, 08/28) | | Muscle bulk of the rotator cuff is preserved. Cartilage of the glenoid and humeral head | | is largely preserved. No full thickness defects. Degeneration of the posterior labrum. | | No labral detachment. IMPRESSION: 1. Subscapularis tear at the myotendinous junction | | measuring 1.6 cm x 1.2 cm. The tear involves the superior subscapularis fibers. There | | are some intact fibers inferiorly. Biceps tendon remains within the intertubercular | | groove.2. Supraspinatus, infraspinatus and teres minor are intact.3. Degeneration of | | the posterior labrum. | | | |Infraspinatus and teres minor tendons are intact. Biceps tendon is intact. | | | |Subscapularis tendon is torn at the superior myotendinous junction. The tear measures 1.6 c m x 1.2 cm and involves the superior tendon fibers, there are some intact fibers inferiorly. There is 1.2 cm of separation between the distal and proximal | |subscapularis fibers. (05/26, 11/30, 08/28) | | | |Muscle bulk of the rotator cuff is preserved. | | | |Cartilage of the glenoid and humeral head is largely preserved. No full thickness defects. | | | |Degeneration of the posterior labrum. No labral detachment. | | | |IMPRESSION: | | | |1. Subscapularis tear at the myotendinous junction measuring 1.6 cm x 1.2 cm. The tear inv olves the superior subscapularis fibers. There are some intact fibers inferiorly. Biceps ten don remains within the intertubercular groove. | |2. Supraspinatus, infraspinatus and teres minor are intact. | |3. Degeneration of the posterior labrum. | | | | | + + documented in this encounter Visit Diagnoses + + | Diagnosis | + + | Shoulder pain, right Pain in joint, shoulder region | + + documented in this encounter"
--- OUTSIDE RECORDS SUMMARY | ~2019-01-31 | XMS | Encounter Summary ---
Demographics + + + | Address | [address] [place] [address] | | | [place] [address] | + + + | Home Phone | | + + + | Preferred Language | Unknown | + + + | Marital Status | | + + + | Nondenominational Affiliation | Unknown | + + + | Race | Unknown | + + + | Ethnic Group | Unknown | + + + Author + + + | Author | [facility] | | | and [place] | + + + | Organization | [facility] | | | and [...] Team Providers + +------+ + | Care Production Metal Sprayer Name | Role | Phone | + +------+ + PCP | Unavailable | + +------+ + Encounter Details +--------+ + + + + | Date | Type | Department | Care Team | Description | +--------+ + + + + | 06/26/ | Hospital | [facility] | Quinn Gabriel, | | | 2010 - | Encounter | MED CTR DIETARY | MD [address] | | | | | [address] | [place] | | | 07/16/ | | [place] [address] | [address] | | | 2010 | | [phone] | [phone] | | | | | | | | +--------+ + + + [...]
--- OUTSIDE RECORDS SUMMARY | ~2019-01-31 | XMS | Encounter Summary ---
Demographics + + + | Address | [address] [place] [address] | | | [place] [address] | + + + | Home Phone | | + + + | Preferred Language | Unknown | + + + | Marital Status | | + + + | Protestant Affiliation | Unknown | + + + | Race | Unknown | + + + | Ethnic Group | Unknown | + + + Author + + + | Author | [facility] | | | and [place] | + + + | Organization | [facility] | | | and [...] Team Providers + +------+ + | Care Repair Weaver Name | Role | Phone | + +------+ + PCP | Unavailable | + +------+ + Encounter Details +--------+ + + + + | Date | Type | Department | Care Team | Description | +--------+ + + + + | 07/06/ | [facility] | [facility] | Siddharth, | | | 2007 | Encounter | MED CTR EMERGENCY | Heber Allen MD [address] | | | | | [place] [address] | [facility] | | | | | [place] | [place] [address] | | | | | [address] | [phone] | | | | | [phone] | | | +--------+ + + + [...]
--- OUTSIDE RECORDS SUMMARY | ~2019-01-31 | XMS | Clinical Summary ---
Demographics + + + | Address | [address] | | | [place] [address] | + + + | Home Phone | | + + + | Preferred Language | Unknown | + + + | Marital Status | | + + + | Zoroastrian Affiliation | Unknown | + + + | Race | Unknown | + + + | Ethnic Group | Unknown | + + + Author + + + | Author | [facility] (Historical as of | | | 10-02-18) | + + + | Organization | [facility] (Historical as of | | | 10-02-18) | + + + | Address | Unknown | + + + | Phone | Unavailable | + + + Support + + + + + | Name | Relationship | Address | Phone | + + + + + | Rosa MQuinn | ECON | [address] | | | | | [place] | | | | | [address] | | + + + + + Care Team Providers + +------+ + | Care Metal Box Maker Name | Role | Phone | + +------+ + PP | Unavailable | + +------+ + Allergies Not on File Current Medications Not on file Active Problems Not on file Social History + +-------+ +--------+------+ | Tobacco [...] on file | | + + + Plan of Treatment Not on file Results Not on filefrom Last 3 Months Insurance + +--------+ +------+-------+---------+ | Payer | Benefi | Subscriber | Type | Phone | Address | | | t Plan | ID | | | | | | / | | | | | | | Group | | | | | + +--------+ +------+-------+---------+ | [employer] | FC-NET | [id number] | | | | | | WORK | | | | | + +--------+ +------+-------+---------+ + +--------+ +--------+ + + | Guarantor Name | Accoun | Relation to | Date | Phone | Billing Address | | | t Type | Patient | of | | | | | | | | | | + +--------+ +--------+ + + | QUINN SAUL | Person | Self | [birth year] | Home: | [address] [place] [address] | | | al/Fam | | 1960 | [phone] [place] | | | david | | | 1901 | [phone] | + +--------+ +--------+ + +"
--- OUTSIDE RECORDS SUMMARY | ~2019-01-31 | XMS | Encounter Summary ---
Demographics + + + | Address | [address] [place] [address] | | | [place] [address] | + + + | Home Phone | | + + + | Preferred Language | Unknown | + + + | Marital Status | | + + + | Religion Affiliation | Unknown | + + + | Race | Unknown | + + + | Ethnic Group | Unknown | + + + Author + + + | Author | [facility] | | | and [place] | + + + | Organization | [facility] | | | and [...] Team Providers + +------+ + | Care Counter Intelligence Agent Name | Role | Phone | + [...] | | | | | | | [Z80.0][place] | | | | | | | tt's | | | | | | | esophagus | | | | | | | without | | | | | | | dysplasia | | | | | | | [K22.70] | | | | | | | Procedures | | | | | | | VT | | | | | | | COLONOSCOPY | | | | | | | W/BIOPSY | | | | | | | SINGLE/MULTI | | | | | | | PLE VT | | | | | | | COLONOSCOPY | | | | | | | FLX DX | | | | | | | W/COLLJ SPEC | | | | | | | WHEN PFRMD | | | | | | | VT COLSC | | | | | | | FLX W/RMVL | | | | | | | OF TUMOR | | | | | | | POLYP LESION | | | | | | | SNARE TQ | | | | | | | VT | | | | | | | ESOPHAGOGAST | | | | | | | RODUODENOSCO | | | | | | | PY TRANSORAL | | | | | | | DIAGNOSTIC | | | | | | | [place] EGD | | | | | | [...] + + + + | 06/30/ | [facility] | [facility] | Mc Call MD | | | 2017 | Encounter | MED CTR MP INTRA OP | [address] [facility] | | | | | [address] | [place] | | | | | [place] | [address] | | | | | [address] | [phone] | | | | | [phone] | | | +--------+ + + + [...] [address] | [place] | [phone] | | [facility] | | [address] | | | - LABORATORY | | [...] ST. | [address] | [place], [place] | [phone] | | [facility] | | [address] | | | - LABORATORY | | [...] | | | interpretation were performed by [employer], [address] | | [place] [address] (Full Time Babysitter: Anival Fernandez | | | Carolyn Dial; [facility]#: [id number]). Diagnostician: Nirmal Salinas | | | Benny [...]
--- OUTSIDE RECORDS SUMMARY | ~2019-01-31 | XMS | Encounter Summary ---
Demographics + + + | Address | [address] [place] [address] | | | [place] [address] | + + + | Home Phone | | + + + | Preferred Language | Unknown | + + + | Marital Status | | + + + | Temple Affiliation | Unknown | + + + | Race | Unknown | + + + | Ethnic Group | Unknown | + + + Author + + + | Author | [facility] | | | and [place] | + + + | Organization | [facility] | | | and [...] Team Providers + +------+ + | Care Firearms Model Maker Name | Role | Phone | [...] + + | 05/12/ | Office | [facility] | Taran Samuels MD | Tendinopathy of left | | 2019 | Visit | [facility] | [address] | rotator cuff | | | | [address] | [place] | (Primary Dx); | | | | [place] | [address] | Subacromial bursitis | | | | [address] | | | | | | [phone] | | | +--------+---------+ + + + [...] today consisted of: Patient Education / Self Intermediate Management: Educated pt about the clinical presentation seen today. Educated about the how and why of performing the HEP given below. Posture education Therapeutic Exercise: Patient instructed in the following activities for home: Issued Physical Therapy Home program of: Access Code: [email or web address] URL: [email or web address] Date: 05/12/2018 Prepared by: Phil Nance Exercises [...] prefer to be seen at PT in [facility] This evaluation and treatment was under the [...] from education today [facility]. Physical therapy treatment room consult to [...] Procedure: COLONOSCOPY; Surgeon: Mc Call MD; Location: [facility] MEDICAL PROCEDURE UNIT LASIK TONSILLECTOMY UPPER GASTROINTESTINAL ENDOSCOPY N/A 06/30/2016 Procedure: EGD; Surgeon: Mc Call MD; Location: [facility] MED[facility] PROC[facility]URE [facility] SocHx: Social [...] ASPIRIN LOW DOSE 81 MG chewable tablet MARINA SALES AND SERVICE SUPERVISOR 1 T PO D 3 atorvaSTATin (LIPITOR) 10 mg tablet TK 1 T PO QD 2 Blood Glucose Monitoring Suppl (ONE TOUCH ULTRA 2) w/Device KIT USE DIRECTED 0 Continuous Blood Gluc Steward/Stewardess Second Class (FREESTYLE ELIANA 14 DAY READER) EDWARD USE [...]
--- OUTSIDE RECORDS SUMMARY | ~2019-01-31 | XMS | Encounter Summary ---
Demographics + + + | Address | [address] [place] [address] | | | [place] [address] | + + + | Home Phone | | + + + | Preferred Language | Unknown | + + + | Marital Status | | + + + | Christianity Affiliation | Unknown | + + + | Race | Unknown | + + + | Ethnic Group | Unknown | + + + Author + + + | Author | [facility] | | | and [place] | + + + | Organization | [facility] | | | and [...] Team Providers + +------+ + | Care Cardiothoracic Physiotherapist Name | Role | Phone | + +------+ + PCP | Unavailable | + +------+ + Encounter Details +--------+ + + + + | Date | Type | Department | Care Team | Description | +--------+ + + + + | 06/26/ | Hospital | [facility] | Quinn Gabriel, | | | 2010 - | Encounter | MED CTR DIETARY | MD [address] [facility] | | | | | [address] [place] | [place] | | | 07/16/ | | [place] [address] | [address] | | | 2010 | | [phone] | [phone] | | | | | | | [...]
--- OUTSIDE RECORDS SUMMARY | ~2019-01-31 | XMS | Clinical Summary ---
Demographics + + + | Address | [address] [place] [address] | | | [place] [address] | + + + | Home Phone | | + + + | Preferred Language | Unknown | + + + | Marital Status | | + + + | Yarsani Affiliation | Unknown | + + + | Race | Unknown | + + + | Ethnic Group | Unknown | + + + Author + + + | Author | [facility] | | | and [place] | + + + | Organization | [facility] | | | [...] Team Providers + +------+ + | Care Provider Relations Representative Name | Role | Phone | + [...] 12/ | | Activ | | Gluc Speed Runner | | | | 20 | | e | | (FREESTYLE ELIANA 14 | | | | 18 | | | | DAY READER) EDWARD | | | | | | | + + + +---------+------+------+-------+ | ASPIRIN LOW DOSE | TOOTH CUTTER SPUR 1 T PO D | | 3 [...] +-------+--------+ +--------+-------+---------+------+ | BCBS | BCBS | [id number] | 02/16/19 | | | PPO | [...] Person | Self | [birth year] | | [address] [place] [address] | | [place] | al/Fam | | 1960 | [phone] | [place] [address] | | | david | | | 7 (Home) | | + +--------+ +--------+ + + Advance Directives + + + + + | Type | Date Recorded | Patient | Explanation | | | | Tag Marker | | + + + + + | Power of | | | | | Plant Associate | | | | + + + + + | Advance | 06/30/2016 5:52 | | | | Directive | AM | | | + + + + +
--- OUTSIDE RECORDS SUMMARY | ~2019-01-31 | XMS | Encounter Summary ---
Demographics + + + | Address | [address] [place] [address] | | | [place] [address] | + + + | Home Phone | | + + + | Preferred Language | Unknown | + + + | Marital Status | | + + + | Catholic Affiliation | Unknown | + + + | Race | Unknown | + + + | Ethnic Group | Unknown | + + + Author + + + | Author | [facility] | | | and [place] | + + + | Organization | [facility] | | | [...] Team Providers + +------+ + | Care Heel Emery Buffer Name | Role | Phone | + +------+ + | Quinn Gabrile MD | PCP | | + +------+ + Reason for Visit + + + | Reason | Comments | + + + | New Patient | Left shoulder | + + + Encounter Details +--------+---------+ + + + | Date | Type | Department | Care Team | Description | +--------+---------+ + + + | 01/02/ | Office | [facility] | Dae Samuels MD | Tendinopathy of left | | 2019 | Visit | [facility] | [address] | rotator cuff | | | | [address] | [place] | (Primary Dx); | | | | [place] | [address] | Subacromial bursitis | | | | [address] | | | | | | [phone] | | | +--------+---------+ + + + Social History + + + +--------+------+ | Tobacco Use | Types | Packs/Day | Years | Date | | | | | Used | | + + + +--------+------+ | Former Smoker | Cigarettes | 1 | 30 | | + + + +--------+------+ + +---+---+---+ | Smokeless Tobacco: | | [...] + + + | Blood Pressure | 134/84 | 02/17/2018 3:02 PM | | | | | PST | | + + + + + | Pulse | 103 | 02/17/2018 3:02 PM | | | | | PST | | + + + + + | Temperature | 37.2 C (98.9 F) | 02/17/2018 3:02 PM | | | | | PST | | + + + + + | Respiratory Rate | - | - | | + + + + + | Oxygen Saturation | 96% | 02/17/2018 3:02 PM | | | | | PST | | + + + + + | Inhaled Oxygen | - | - | | | Concentration | | | | + + + + + | Weight | 124.7 kg (274 lb | 02/17/2018 3:02 PM | | | | 14.6 oz) | PST | | + + + + + | Height | 175.3 cm (5' 9") | 02/17/2018 3:02 PM | | | | | PST | | + + + + + | Body Mass Index | 40.6 | 02/17/2018 3:02 PM | | | | | PST | | + + + + + documented in this encounter Patient Instructions Patient Instructions Dae Samuels MD - 02/17/2018 3:00 PM PSTFormatting of this note mi ght be different from the original. Cortisone Injections Cortisone is a type of steroid. It can greatly reduce swelling, redness, inflammation, and pain. Being injected with cortisone is simple and doesn t take long. Your doctor may ask y ou questionsabout your health. Cortisone can affect certain health conditions, such as blair betes. Why have a cortisone injection? Injecting cortisone can sometimes relieve pain for anything from a sports injury to arthrit is. Your doctor may suggest an injection if rest,splints, physical therapy, rehabilitation exercises, ororal medicine doesn t relieve your pain. Injecting cortisone is simpler th an having surgery. And cortisonemay provide the lasting pain relief that can help you get out and enjoy life again. A recent study showed steroid injections may actually worsen osteo arthritis of the knee. Be sure to discuss all options with your healthcare provider. Injecti ons are usually used no more than 3 to 4 times a year in one area of the body. Getting the injection Your doctorwill start by cleaning and possibly numbing your skin at the injection site. N ext you ll be injected with local anesthetics (for short-term pain relief) and cortisone. The injectionmaylast a fewmoments. A small bandage will be put over the injection site . You ll then be ready to go home. After your injection After being injected, make sure you don t injure the treated region. But stay active. Enj oy a walk or some other mild activity. Just be careful not to strain the region that gave yo u trouble. The next day Some people feel more pain after being injected. This is normal, and it will go away soon. Applying ice for 20 minutes at a time to your injury may reduce the increased pain. Rest for the first day or two. You don t need to stay in bed. But avoid tasks that may strain the injured region. If you have diabetes Cortisone injections can increase your blood sugar for several days after the injection. If you have diabetes, follow your blood sugar closely during this time. Follow your regular pl an for what to do when your blood sugar is elevated. Date Last Reviewed: 10/17/201619998995-4773 [employer]. [address] [place] [address]. All [facility] ts reserved. This information is not intended as a substitute for professional medical care. Always follow your healthcare professional's instructions. documented in this encounter Progress Notes Dae Samules MD - 02/17/2018 3:00 PM PSTAssociated Order(s): ARTHROCENTESISFormatting o f this note might be different from the original. Sports Medicine Visit Assessment & Plan: 1. Tendinopathy of left rotator cuff - methylPREDNISolone acetate (DEPO-MEDROL) 40 mg/mL injection 40 mg; Inject 1 mL into the a rticular space once. - lidocaine 1% injection 5 mL; 5 mLs by Other route once. - ARTHROCENTESIS 2. Subacromial bursitis - ARTHROCENTESIS Patient with long-standing rotator cuff tendinopathy with impingement syndrome. He had ult rasound findings consistent with subacromial bursitis and partial intrasubstance supraspinat us tear with cortical irregularities consistent with chronic nature of tendinopathy/partial tear. No retraction or complete full-thickness tear noted on exam. There was some cortical irregularity over the anterior greater tubercle at the border of the bicipital groove. Con cern for previous traumatic injury versus degenerative changes. Awaiting outside x-ray and MRI images for further workup. In the interim, patient's pain limits his daily activities a nd is interested in a ultrasound-guided subacromial bursa cortisone injection. Risks/benefits were discussed as well as alternatives and written consent was obtained. All questions were answered prior to the procedure. After a time-out, procedure was performed. Patient tolerated the procedure well. Please see additional procedure note for more details. Joint Inj/Asp Date/Time: 02/17/2018 16:30 Performed by: DAE SAMUELS Authorized by: DAE SAMUELS Indications: pain Body area: shoulder Joint: left subacromial bursa Local anesthesia used: yes Anesthesia: local infiltration Anesthesia: Local anesthesia used: yes Local Anesthetic: lidocaine 1% without epinephrine Anesthetic total: 3 mL Preparation: Patient was prepped and draped in the usual sterile fashion. Needle size: 22 G Ultrasound guidance: yes Approach: posterior Methylprednisolone amount: 40 mg Lidocaine 1% amount: 4 mL Patient tolerance: Patient tolerated the procedure well with no immediate complications Return in about 8 weeks (around 04/14/2018) for SP - f/u L shoulder. Total time today is 25 minutes outside of time spent in preparation and performing ultrasou nd guided procedure, 80-99% of which is in counseling and coordination of care regarding the above issue(s). All of the patients questions were addressed and answered at time of the office visit. Kushal nk you for allowing us to share in the care of your very pleasant patient. Subjective: CC: New Patient (Left shoulder) HPI: Quinn Mederos is a 58 y.o. male seen for consultation regarding a history o f chronic left shoulder pain. Patient had off and on pain after his time in the and with any kind of overhead physical exertion over the past many years. About 3 years ago he was moving things in his attic and had a abrupt "yanked" of his left shoulder that caused a tearing sensation when he fell out of the attic. It occurred in July 2014. Ever since kushal t time he's had anterior/lateral left shoulder pain that is sharp, dull, aching in quality a nd worse with overhead activity. He has an associated tingling over the greater trochanter anteriorly. Everything seems to make the pain worse at this point. Resting and sleep with propping the shoulder up makes it a little bit better. Pain today is 7 out of 10 in kobeit y. He's had x-rays and MRI and her previous workup of his provider at the [facility]. He also takes occasional Motrin for the pain. Is not interested in surgery at this time . Overall he feels like his symptoms are worsening. PMH: Past Medical History: Diagnosis Date Allergic rhinitis Muro's esophagus BPH (benign prostatic hyperplasia) Diabetes mellitus type 2, uncontrolled (HCC) Esophageal reflux Essential hypertension History of colonic polyps Hyperlipidemia Hypogonadism male Restless leg syndrome PSH: Past Surgical History: Procedure Laterality Date COLONOSCOPY N/A 06/30/2016 Procedure: COLONOSCOPY; Surgeon: Mc Call MD; Location: [facility] MEDICAL PROCEDURE UNIT LASIK TONSILLECTOMY UPPER GASTROINTESTINAL ENDOSCOPY N/A 06/30/2016 Procedure: EGD; Surgeon: Mc Call MD; Location: [facility] MEDICAL PROCEDURE UNIT SocHx: Social History Occupational History Not on file. Social History Main Topics Smoking status: Former Smoker Packs/day: 1.00 Years: 30.00 Types: Cigarettes Smokeless tobacco: Never Used Alcohol use No Drug use: No Sexual activity: Not on file FMHx: No family history on file. Meperidine and Morphine Outpatient Medications Prior to Visit Medication Sig Dispense Refill aspirin 325 mg tablet Take 325 mg by mouth Daily. atorvaSTATin (LIPITOR) 10 mg tablet TK 1 T PO QD 2 Blood Glucose Monitoring Suppl (ONE TOUCH ULTRA 2) w/Device KIT USE DIRECTED 0 doxycycline (VIBRAMYCIN) 100 mg capsule TK 1 [...] CAPS TK 1 C PO BID 11 traZODone (DESYREL) 100 mg tablet TK 1 TO 2 TS PO QHS PRF INSOMNIA 3 Facility-Administered Medications Prior to Visit Medication Dose [...] patient is not nervous/an xious. Objective: BP 134/84 | Pulse 103 | Temp 37.2 C (98.9 F) (Temporal) | Ht 1.753 m (5' 9") | Wt 1 24.7 kg (274 lb 14.6 oz) | SpO2 96% | BMI 40.60 kg/m Physical Exam Constitutional: He is oriented [...] has a normal mood and affect. Left Shoulder Exam Inspection: No gross deformity -TTP over greater trochanter, anterior rotator cuff interval and mildly over ACJ Strength 5/5 ROM: Left Active Passive Forward Flexion 170 170 Abduction 130 160 External Rotation 45 45 Internal rotation L1 (+) Impingement Tests (Shepard, Toney, Neer's) (-) O'iraida's Test (+) AC tenderness (-) Arm Cross-over Test. (-) Speeds test Radiology: Available imaging (unavailable at this time. Patient to bring in disc of images) In-office bedside ultrasound was notable for normal-appearing biceps tendon without signifi cant tear, thickening, pretendinous fluid. However significant cortical irregularity over t he lateral border of the bicipital groove extending over the greater trochanter consistent w ith the possibility of avulsion of the ligament overlying the bicipital groove. There is ir regularity of fibers with mixed hyper and hypoechoic visualization overlying the biceps tend on without significant changes on dynamic imaging. Additionally, the patient has an intrasu bstance supraspinatus tear particularly at the junction of supra and infraspinatus. There i s a small amount of cortical irregularity at its distal insertion just lateral to the biceps tendon. There is no large full-thickness rotator cuff tear on supraspinatus, infraspinatus , subscapularis imaging. No significant glenohumeral joint effusion.. Please excuse any word selection errors, misspellings, [...] | + +--------+ + + + | ARTHROCENTESIS | Routin | 02/17/2018 | Tendinopathy of | Results for this | | | e | 3:00 PM | left rotator cuff | procedure are in the | | | | PST | Subacromial bursitis | results section. | + +--------+ + + + documented in this encounter Results ARTHROCENTESIS (02/17/2018 3:00 PM PST) + + + | Narrative | Performed At | + + + | Dae Samuels MD 02/17/2018 16:50 Joint Inj/Asp Date/Time: | | | 02/17/2018 16:30 Performed by: DAE SAMUELS Authorized by: ABBIE | | | DEA Indications: pain Body area: shoulder Joint: left | | | subacromial bursa Local anesthesia used: yes Anesthesia: local | | | infiltration Anesthesia: Local anesthesia used: yes Local | | | Anesthetic: lidocaine 1% without epinephrine Anesthetic total: 3 mL | | | Preparation: Patient was prepped and draped in the usual sterile | | | fashion. Needle size: 22 G Ultrasound guidance: yes Approach: | | | posterior Methylprednisolone amount: 40 mg Lidocaine 1% amount: 4 mL | | | Patient tolerance: Patient tolerated the procedure well with no | | | immediate complications | | + + + documented in this encounter Visit Diagnoses + + | Diagnosis | + + | Tendinopathy of left rotator cuff - Primary | + + | Subacromial bursitis Other specified disorders of rotator cuff syndrome of shoulder | | and allied disorders | + + documented in this encounter Administered Medications + + + +-------+------+ + | Medication Order | MAR | Action | Dose | Rate | Site | | | Action | Date | | | | + + + +-------+------+ + | lidocaine 1% injection 5 mL 5 | Given by | 02/17/19 | 5 mLs | | Shoulder | | mL, Other, ONCE, 02/17/18 at | Other | 19 4:15 | | | -Left | | 1630, For 1 dose | | PM PST | | | | + + + +-------+------+ + +---+---+ | | | +---+---+ + + + +-------+---+ + | methylPREDNISolone acetate | Given by | 02/17/19 | 40 mg | | Shoulder | | (DEPO-MEDROL) 40 mg/mL injection | Other | 19 4:13 | | | -Left | | 40 mg 40 mg, Intra-articular, | | PM PST | | | | | ONCE, 02/17/18 at 1630, For 1 | | | | | | | dose, Not for IV use., | | | | | | + + + +-------+---+ + +---+---+ | | | +---+---+ documented in this encounter
--- OUTSIDE RECORDS SUMMARY | ~2019-01-31 | XMS | Encounter Summary ---
Demographics + + + | Address | [address] [place] [address] | | | [place] [address] | + + + | Home Phone | | + + + | Preferred Language | Unknown | + + + | Marital Status | | + + + | Episcopalian Affiliation | Unknown | + + + | Race | Unknown | + + + | Ethnic Group | Unknown | + + + Author + + + | Author | [facility] | | | and [place] | + + + | Organization | [facility] | | | [...] Team Providers + +------+ + | Care Lithograph Designer Name | Role | Phone | + +------+ + PCP | Unavailable | + +------+ + Encounter Details +--------+ + + + + | Date | Type | Department | Care Team | Description | +--------+ + + + + | 08/01/ | [facility] | [facility] | Nahed Troncoso, | | | 2007 | Encounter | MED CTR XRAY [address] [place] | | | | | [place] | [place], | | | | | [place] [address] | [place] [address] | | | | | [phone] | [phone] | | | | | | | [...]
--- OUTSIDE RECORDS SUMMARY | ~2019-01-31 | XMS | Encounter Summary ---
Demographics + + + | Address | [address] [place] [address] | | | [place] [address] | + + + | Home Phone | | + + + | Preferred Language | Unknown | + + + | Marital Status | | + + + | Quaker Affiliation | Unknown | + + + [...] Team Providers + +------+ + | Care Referral Nurse Name | Role | Phone | + [...] | | | | | | | [Z80.0][place] | | | | | | | tt's | | | | | | | esophagus | | | | | | | without | | | | | | | dysplasia | | | | | | | [K22.70] | | | | | | | Procedures | | | | | | | NC | | | | | | | COLONOSCOPY | | | | | | | W/BIOPSY | | | | | | | SINGLE/MULTI | | | | | | | PLE NC | | | | | | | COLONOSCOPY | | | | | | | FLX DX | | | | | | | W/COLLJ SPEC | | | | | | | WHEN PFRMD | | | | | | | NC COLSC | | | | | | | FLX W/RMVL | | | | | | | OF TUMOR | | | | | | | POLYP LESION | | | | | | | SNARE TQ | | | | | | | NC | | | | | | | ESOPHAGOGAST | | | | | | | RODUODENOSCO | | | | | | | PY TRANSORAL | | | | | | | DIAGNOSTIC | | | | | | | NC EGD | | | | | | [...] + + + + | 06/30/ | Anesthesia | [facility] | Roberto Mckeon | | | 2017 | Event | MED CTR MP INTRA OP | MD Eris [address] | | | | | [address] | [facility] | | | | | [place] | [place] [address] | | | | | [address] | [phone] | | | | | [phone] | | | +--------+ + + + + Anesthesia Record + + + + + | Procedure Name | Responsible | Anesthesia Start | Anesthesia Stop Time | | | Anesthesiologist | Time | | + + + + + | RYAN (N/A Mouth) | Roberto Schulte | 06/30/16722 | 06/30/16 0800 | | | MD Mike | | | + + + + + +----+---+ + + | Da | T | Event | Comment | | te | i | | | | | m | | | | | e | | | +----+---+ + + | 05 | 0 | | | | /1 | 7 | | | | 5/ | 1 | | | | 20 | 8 | | | | 17 | | | | +----+---+ + + | | 0 | An Checkout | Pre-use anesthesia machine/equipment checkout. | | | 7 | | | | | 2 | | | | | 1 | | | +----+---+ + + | | 0 | An Start | Reassessment prior to anesthesia induction/procedure. | | | 7 | | | | | 2 | | | | | 3 | | | +----+---+ + + | | 0 | An Start | | | | 7 | Data | | | | 2 | | | | | 4 | | | +----+---+ + + | | 0 | AN | Per surgeon request | | | 7 | Antibiotic | | | | 2 | declined | | | | 6 | | | +----+---+ + + | | 0 | Preoxygenat | | | | 7 | ed | | | | 2 | | | | | 7 | | | +----+---+ + + | | 0 | Pre-Procedu | | | | 7 | ral Timeout | | | | 2 | Completed | | | | 8 | | | +----+---+ + + | | 0 | An | | | | 7 | Induction | | | | 2 | | | | | 9 | | | +----+---+ + + | | 0 | Breathing | | | | 7 | Spontaneous | | | | 3 | ly | | | | 0 | | | +----+---+ + + | | 0 | an stop | | | | 7 | data | | | | 5 | | | | | 6 | | | +----+---+ + + | | 0 | Moving | | | | 7 | Purposefull | | | | 5 | y | | | | 6 | | | +----+---+ + + | | 0 | An Stop | Patient handed off to recovery nurse. | | | 0 | | | | | 0 | | | +----+---+ + + +------+ | Meds | +------+ + + + | Name | Total | + + + | propofol (DIPRIVAN) injection | 50 mg | | (bolus) (20 mL) | | + + + | propofol | 475.97 mg | + + + | lidocaine 2% | 100 mg | + + + | lactated ringers (LR) infusion | 500 mL | + + + + + | Name | + + | O2 Flow Rate (L/Min) | + + + + | No blood administrations on file. | + + +--------+ + + + | Type | Details | Placement | Removal | +--------+ + + + | Periph | 06/30/16; 628; Right; Hand; | 06/30/16628 by | 06/30/16914 by | | becky | [id number] catheter system; | Michelle Monreal RN | Jayla Ortiz | | IV | 20 gauge, 1 1/4 in length; | | SRIKANTH Enriquez | | | distraction, intradermal | | | | | injection, tolerated well; no | | | | | longer indicated, removed per | | | | | policy/procedure, catheter/device | | | | | intact; healing within | | | | | expectations; 06/30/16914 | | | +--------+ + + + documented in this encounter Social History + +-------+ +--------+------+ | Tobacco [...] filedocumented in this encounter Administered Medications + +---------+ +------+------+------+ | Medication Order | [...] +---------+ +---+-------+---+ +---+---+ | | | +---+---+ + +-------+ +--------+---+---+ | lidocaine (PF) 2% injection | Given | 07/01/19 | 100 mg | | | | Intravenous, PRN, Starting Mon | | 7:29 | | | | | 06/30/16 at 0729, Anesthesia | | AM PDT | | | | | Intra-op | | | | | | + +-------+ +--------+---+---+ +---+---+ | | | +---+---+ + +-------+ +-------+---+---+ | propofol (DIPRIVAN) injection | Given | 07/01/19 | 50 mg | | | | Intravenous, PRN, Starting Mon | | 17 7:29 | | | | | 06/30/16 at 0729, Anesthesia | | AM PDT | | | | | Intra-op | | | | | | + +-------+ +-------+---+---+ +---+---+ | | | +---+---+ + + + + +--------+---+ | propofol (DIPRIVAN) injection | Rate/Dos | 07/01/19 | 180 | 127.9 | | | Intravenous, CONTINUOUS PRN, | e Change | 17 7:44 | mcg/kg/m | mL/hr | | | Starting 06/30/16 at 0729, | | AM PDT | in | | | | Anesthesia Intra-op | | | | | | + + + + +--------+---+ + + + +--------+---+ | Rate/Dose Change | 07/01/19 | 200 | 142.1 | | | | 17 7:32 | mcg/kg/m | mL/hr | | | | AM PDT | in | | | + + + +--------+---+ | New Bag | 07/01/19 | 300 | 213.1 | | | | 17 7:29 | mcg/kg/m | mL/hr | | | | AM PDT | in | | | + + + +--------+---+ +---+---+ | | | +---+---+ documented in this encounter"
--- OUTSIDE RECORDS SUMMARY | ~2019-01-31 | XMS | Encounter Summary ---
Demographics + + + | Address | [address] [place] [address] | | | [place] [address] | + + + | Home Phone | | + + + | Preferred Language | Unknown | + + + | Marital Status | | + + + | Hoahaoism Affiliation | Unknown | + + + | Race | Unknown | + + + | Ethnic Group | Unknown | + + + Author + + + | Author | [facility] | | | and Matheusana | + + + | Organization | [facility] | | | [...] Team Providers + +------+ + | Care Clothing Designer Name | Role | Phone | [...] + + | 01/02/ | Office | [facility] | Dae Samuels MD | Tendinopathy of left | | 2019 | Visit | [facility] | [address] | rotator cuff | | | | [address] | [place] | (Primary Dx); | | | | [place] | [address] | Subacromial bursitis | | | | [address] | | | | | | [phone] | | | +--------+---------+ + + + [...] blood sugar is elevated. Date Last Reviewed: 10/17/[id number] [employer] [place] [address]. All [facility] ts reserved. This information is not intended as a substitute for professional medical care. Always follow your healthcare professional's instructions. documented in this encounter Progress Notes Dae Samuels MD - 02/17/2018 3:00 PM PSTAssociated Order(s): [...] previous workup of his provider at the [facility]. He also takes occasional Motrin for the [...] Procedure: COLONOSCOPY; Surgeon: Mc Call MD; Location: [facility] LASIK TONSILLECTOMY UPPER GASTROINTESTINAL ENDOSCOPY N/A 06/30/2016 Procedure: EGD; Surgeon: Mc Call MD; Location: [facility] SocHx: Social History Occupational [...] SAMUELS Authorized by: ABBIE | | | DAE Indications: pain Body area: shoulder Joint: left [...]
--- OUTSIDE RECORDS SUMMARY | ~2019-01-31 | XMS | Encounter Summary ---
Demographics + + + | Address | [address] [place] [address] | | | [place] [address] | + + + | Home Phone | | + + + | Preferred Language | Unknown | + + + | Marital Status | | + + + | Temple Affiliation | Unknown | + + + | Race | Unknown | + + + | Ethnic Group | Unknown | + + + Author + + + | Author | [facility] | | | and Matheusana | + + + | Organization | [facility] | | | [...] Team Providers + +------+ + | Care Field Clerk Name | Role | Phone | + [...] | | | | | | | [Z80.0][place] | | | | | | | tt's | | | | | | | esophagus | | | | | | | without | | | | | | | dysplasia | | | | | | | [K22.70] | | | | | | | Procedures | | | | | | | [place] | | | | | | | COLONOSCOPY | | | | | | | W/BIOPSY | | | | | | | SINGLE/MULTI | | | | | | | PLE [place] | | | | | | | COLONOSCOPY | | | | | | | FLX DX | | | | | | | W/COLLJ SPEC | | | | | | | WHEN PFRMD | | | | | | | [place] COLSC | | | | | | | FLX W/RMVL | | | | | | | OF TUMOR | | | | | | | POLYP LESION | | | | | | | SNARE TQ | | | | | | | [place] | | | | | | | ESOPHAGOGAST | | | | | | | RODUODENOSCO | | | | | | | PY TRANSORAL | | | | | | | DIAGNOSTIC | | | | | | | CA EGD | | | | | | | TRANSORAL | | | | | | | BIOPSY | | | | | | | SINGLE/MULTI | | | | | | | PLE EGD | | | | | | | COLONOSCOPY | | | +--------+--------+ + + + + Encounter Details +--------+---------+ + + + | Date | Type | Department | Care Team | Description | +--------+---------+ + + + | 06/30/ | Surgery | [facility] | Mc Call MD | EGD | | 2017 | | MED CTR MP INTRA OP | [address] | | | | | [address] | [place] | | | | | [place] | [address] | | | | | [address] | [phone] | | | | | [phone] | | | +--------+---------+ + + + Social History + +-------+ [...] + + | [facility] | [address] | [place] | [phone] | | [facility] | | [address] | | | - LABORATORY | | [...] + + | [facility] | [address] | [place] | [phone] | | [facility] | | [address] | | | - LABORATORY | | [...] | | | interpretation were performed by [facility], [address] | | | [place] [address] (Intermediate School Teacher: Anival Fernandez | | | Carolyn Dial; [place]#: [id number]). 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
--- OUTSIDE RECORDS SUMMARY | ~2019-01-31 | XMS | Encounter Summary ---
Demographics + + + | Address | [address] [place] [address] | | | [place] [address] | + + + | Home Phone | | + + + | Preferred Language | Unknown | + + + | Marital Status | | + + + | Alevism Affiliation | Unknown | + + + [...] Team Providers + +------+ + | Care Recreation Professor Name | Role | Phone | + [...] | | | | | | | [Z80.0][place] | | | | | | | tt's | | | | | | | esophagus | | | | | | | without | | | | | | | dysplasia | | | | | | | [K22.70] | | | | | | | Procedures | | | | | | | [place] | | | | | | | COLONOSCOPY | | | | | | | W/BIOPSY | | | | | | | SINGLE/MULTI | | | | | | | PLE [place] | | | | | | | COLONOSCOPY | | | | | | | FLX DX | | | | | | | W/COLLJ SPEC | | | | | | | WHEN PFRMD | | | | | | | [place] COLSC | | | | | | | FLX W/RMVL | | | | | | | OF TUMOR | | | | | | | POLYP LESION | | | | | | | SNARE TQ | | | | | | | [place] | | | | | | | ESOPHAGOGAST | | | | | | | RODUODENOSCO | | | | | | | PY TRANSORAL | | | | | | | DIAGNOSTIC | | | | | | | [place] EGD | | | | | | [...] + + | 06/30/ | Surgery | [facility] | Mc Call MD | EGD | | 2017 | | MED CTR MP INTRA OP | [address] | | | | | [address] | [place] | | | | | [place] | [address] | | | | | [address] | [phone] | | | | | [phone] | | | +--------+---------+ + + + [...] [address] | [place] | [phone] | | [facility] | | [address] | | | - LABORATORY | | [...] [address] | [place] | [phone] | | [facility] | | [address] | | | - LABORATORY | | [...] | | | interpretation were performed by [facility], [address] | | | [facility] [place] [address] (Wardrobe Consultant: Anival Fernandez | | | Carolyn Dial; [place]#: [id number]). Diagnostician: Nirmal Salinas | | | Benny [...]
--- OUTSIDE RECORDS SUMMARY | ~2019-01-31 | XMS | Encounter Summary ---
Demographics + + + | Address | [address] [place] [address] | | | [place] [address] | + + + | Home Phone | | + + + | Preferred Language | Unknown | + + + | Marital Status | | + + + | Confucianist Affiliation | Unknown | + + + | Race | Unknown | + + + | Ethnic Group | Unknown | + + + Author + + + | Author | [facility] | | | and Matheusana | + + + | Organization | [facility] | | | [...] Team Providers + +------+ + | Care Servicenow Administrator Name | Role | Phone | + +------+ + PCP | Unavailable | + +------+ + Encounter Details +--------+ + + + + | Date | Type | Department | Care Team | Description | +--------+ + + + + | 11/24/ | Hospital | [facility] | Conversion | Shoulder pain, right | | 2013 | Encounter | [facility] | Transaction, | | | | | [address] | Provider Unknown | | | | | [place] | | | | | | [address] | (Fax) | | | | | [phone] | | | +--------+ + + + [...] Conversion - 10/01/2018 5:09 PM PDT QUINN REDYMDOR1960MRI SHOULDER | | RIGHT WO UEBJLRRS65/9/2014 12:52 PM HISTORY: Shoulder pain, right. COMPARISON: [...]
--- OUTSIDE RECORDS SUMMARY | ~2019-01-31 | XMS | Encounter Summary ---
Demographics + + + | Address | [address] [place] [address] | | | [place] [address] | + + + | Home Phone | | + + + | Preferred Language | Unknown | + + + | Marital Status | | + + + | Oriental Orthodox Affiliation | Unknown | + + + | Race | Unknown | + + + | Ethnic Group | Unknown | + + + Author + + + | Author | [facility] | | | and Matheusana | + + + | Organization | [facility] | | [...] Team Providers + +------+ + | Care Learning Program Manager Name | Role | Phone | + +------+ + PCP | Unavailable | + +------+ + Encounter Details +--------+ + + + + | Date | Type | Department | Care Team | Description | +--------+ + + + + | 08/01/ | [facility] | [facility] | Nahed Tron[place]o, | | | 2007 | Encounter | MED CTR XRAY [address] | [address] | | | | | [place] | [place], | | | | | [place] [address] | [place] [address] | | | | | [phone] | [phone] | | | | | | | [...]
--- OUTSIDE RECORDS SUMMARY | ~2019-01-31 | XMS | Encounter Summary ---
Demographics + + + | Address | [address] [place] | | | [place] [address] | + + + | Home Phone | | + + + | Preferred Language | Unknown | + + + | Marital Status | | + + + | Evangelical Affiliation | Unknown | + + + | Race | Unknown | + + + | Ethnic Group | Unknown | + + + Author + + + | Author | [facility] | | | and Matheusana | + + + | Organization | [facility] | | | [...] Team Providers + +------+ + | Care Home Companion Name | Role | Phone | + [...] | | | | | | | [Z80.0][place] | | | | | | | tt's | | | | | | | esophagus | | | | | | | without | | | | | | | dysplasia | | | | | | | [K22.70] | | | | | | | Procedures | | | | | | | [place] | | | | | | | COLONOSCOPY | | | | | | | W/BIOPSY | | | | | | | SINGLE/MULTI | | | | | | | PLE [place] | | | | | | | COLONOSCOPY | | | | | | | FLX DX | | | | | | | W/COLLJ SPEC | | | | | | | WHEN PFRMD | | | | | | | [place] COLSC | | | | | | | FLX W/RMVL | | | | | | | OF TUMOR | | | | | | | POLYP LESION | | | | | | | SNARE TQ | | | | | | | [place] | | | | | | | ESOPHAGOGAST | | | | | | | RODUODENOSCO | | | | | | | PY TRANSORAL | | | | | | | DIAGNOSTIC | | | | | | | [place] EGD | | | | | | [...] + + | 06/30/ | Anesthesia | [facility] | Roberto Mckeon | | | 2017 | Event | MED CTR MP INTRA OP | MD Eris [address] | | | | | [address] | [facility] | | | | | [place] | [place] [address] | | | | | [address] | [phone] | | | | | [phone] | | | +--------+ + + + [...] | 06/30/16914 by | | becky | sthy-qxb-clqgne catheter system; | Michelle Monreal RN | [...]
--- OUTSIDE RECORDS SUMMARY | ~2019-01-31 | XMS | Clinical Summary ---
Demographics + + + | Address | [address] | | | [place] [address] | + + + | Home Phone | | + + + | Preferred Language | Unknown | + + + | Marital Status | | + + + | Rastafari Affiliation | Unknown | + + + | Race | Unknown | + + + | Ethnic Group | Unknown | + + + Author + + + | Author | [facility] (Historical as of | | | 10-02-18) | + + + | Organization | [facility] (Historical as of | | | 10-02-18) | + + + | Address | Unknown | + + + | Phone | Unavailable | + + + Support + + + + + | Name | Relationship | Address | Phone | + + + + + | Rosa MQuinn | ECON | [address] | | | | | [place] | | | | | [address] | | + + + + + Care Team Providers + +------+ + | Care Knocker Out Name | Role | Phone | + [...] +------+-------+---------+ | [employer] | [employer] | [phone] | | | | | | WORK [...] | Self | [birth year] | Home: | [address] [place] [address] | | | al/Fam | | 1960 | [phone] [place] | | | david | | | 1901 | [phone] | + +--------+ +--------+ + +"
[~2019-01-31 06:24] MED LIST: ACTOS15 MG PO; ASPIRIN EC81 MG PO; DOXYCYCLINE HY100 MG PO; GLIMEPIRIDE1 MG PO; GLUCOSAMINE S1000 M1 PO; LIPITOR10 MG PO; LOSARTAN POTAS100 MG PO; METFORMIN HCL500 MG PO; MULTIVITAMINS1 EAC7 PO; OMEPRAZOLE20 MG PO; PHENTERMINE HCL30 MG PO; TRAZODONE HCL100 MG PO; TRULICITY0.75 MG/0.
[2019-01-31] MEDS ORDERED: NORCO 5-325 TA1 EACH PO (07:11)
== END 2019-01-31 07:30 | disposition home or self-care (01) ==
LOC: ED 06:24
DX: S46.811A Strain of other muscles, fascia and tendons at shoulder and upper arm level, right arm, initial encounter (principal); S40.012A Contusion of left shoulder, initial encounter; W01.198A Fall on same level from slipping, tripping and stumbling with subsequent striking against other object, initial encounter; E11.9 Type 2 diabetes mellitus without complications; Z87.891 Personal history of nicotine dependence; Z88.5 Allergy status to narcotic agent; Z79.899 Other long term (current) drug therapy; Z79.84 Long term (current) use of oral hypoglycemic drugs; Z79.82 Long term (current) use of aspirin
CPT/HCPCS: 73030; 73080; 99283-25

== ENCOUNTER 2019-09-04 01:52 | Emergency (ER) | payer BC ==
[~2019-09-04] VITALS: Ht 175.3 cm; Wt 120.2 kg
[~2019-09-04 01:52] MED LIST changes: +NORCO 5-325 TA1 EACH PO
== END 2019-09-04 02:24 | disposition home or self-care (01) ==
LOC: ED 01:52
DX: T63.441A Toxic effect of venom of bees, accidental (unintentional), initial encounter (principal); E11.9 Type 2 diabetes mellitus without complications; Z87.891 Personal history of nicotine dependence; Z88.5 Allergy status to narcotic agent; Z88.8 Allergy status to other drugs, medicaments and biological substances; Z79.84 Long term (current) use of oral hypoglycemic drugs; Z79.82 Long term (current) use of aspirin; Z79.899 Other long term (current) drug therapy
CPT/HCPCS: 99282

== ENCOUNTER 2020-09-13 01:52 | Emergency (ER) | payer BC ==
[~2020-09-13] VITALS: Ht 175.3 cm; Wt 122.0 kg
[2020-09-13] MEDS ORDERED: HYDROCODON-ACE1 EA10 PO (04:39)
[2020-09-13] MEDS ORDERED: ZOFRAN4 MG PO (04:39)
== END 2020-09-13 04:56 | disposition home or self-care (01) ==
LOC: ED 01:52
DX: N13.2 Hydronephrosis with renal and ureteral calculous obstruction (principal); E11.9 Type 2 diabetes mellitus without complications; Z87.891 Personal history of nicotine dependence; Z85.028 Personal history of other malignant neoplasm of stomach; Z88.5 Allergy status to narcotic agent; Z79.899 Other long term (current) drug therapy; Z79.82 Long term (current) use of aspirin; Z79.84 Long term (current) use of oral hypoglycemic drugs
CPT/HCPCS: 74177; 80053; 81001; 83690; 85025; 96375; 96376; 99284-25; J1170; J2405; Q9967

== ENCOUNTER 2022-05-26 01:39 | Observation (INO) | payer BC ==
[~2022-05-26] VITALS: Ht 175.3 cm; Wt 116.8 kg
[~2022-05-26 01:39] MED LIST changes: +HYDROCODON-ACE1 EA10 PO; +ZOFRAN4 MG PO
--- OUTSIDE RECORDS SUMMARY | 2022-05-26 01:42 | XMS ---
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 [facility] has no Care Guidelines for this patient. [place] VISIT COUNT (12 MO.) 1 HAYLEY Reynoso TOTAL 1 NOTE: Visits indicate total known visits. ED/UCC VISIT TRACKING (12 MO.) 05/26/2022 01:40 [place] TYPE: Emergency COMPLAINT: - UPPER ABD PAIN INPATIENT VISIT TRACKING (12 MO.) No inpatient visits to display in this time frame [email or web address]
[2022-05-26 04:26] VITALS: BP 120/74
--- NOTE | 2022-05-26 07:47 | CONS ---
[facility] [address] [place], [place] [address] Signed DATE OF CONSULTATION: 05/26/2022 CHIEF COMPLAINT: Epigastric abdominal pain. HISTORY OF PRESENT ILLNESS: Quinn is a 62-year-old gentleman, who had developed epigastric abdominal pain last night and had about five episodes of vomiting. He came to our local emergency room for evaluation. His white count was normal. Liver function tests were unremarkable. He underwent a CT scan of his abdomen and pelvis. He does have cholelithiasis and some pericholecystic stranding and some mild distention of the gallbladder. Common bile duct is unremarkable. He also has gastric varices. Unfortunately, I was not informed of all these issues. We did admit him late last night with Rocephin and Flagyl. He has done well with some Demerol overnight. He was sleeping soundly this morning. His is at the bedside. PAST MEDICAL HISTORY: Diabetes, Muro's esophagus, hiatal hernia, BPH. 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 He is not familiar with the term multiple endocrine neoplasia. PAST SURGICAL HISTORY: Sinuses, tonsils, shoulder and multiple upper endoscopies with his last in June of 2021 with the GI Group at [facility] in [place]. SOCIAL HISTORY: He used to smoke over a pack a day but he quit around age 45. Does not drink. His primary care provider is Dr. Quinn Lay. He prefers the [facility]. His is Tata at [phone]. He has three children. 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 His new cow rider is Dr. Jaylen Guy at [phone] and [phone]. He also has seen a medical oncologist at the [facility] in [place], Dr. Florencio Cardenas [phone]. FAMILY HISTORY: None. REVIEW OF SYSTEMS: He had 10 systems reviewed and we talked about his stomach issues and the gastric varices which apparently are new to him. ALLERGIES: Morphine gives him hives. Electronically Signed By: OMAR MORALES MD 05/26/22 0747 PATIENT NAME: QUINN SAUL CONSULTATION DATE OF : 60 REPORT #: [id number] PHYSICIAN: OMAR MORALES MD PCP: QUINN LAY MD REPORT IS CONFIDENTIAL AND NOT TO BE RELEASED WITHOUT AUTHORIZATION [facility] [address] [place], [place] [address] Signed MEDICATIONS: 1. Metformin. 2. Glimepiride. 3. Phentermine. 4. Omeprazole. 5. Losartan. 6. Atorvastatin. 7. Glucosamine. 8. Pioglitazone. 9. Trulicity. 10. Aspirin. 11. Trazodone. PHYSICAL EXAMINATION: VITAL SIGNS: His blood pressure is 120/74, his heart rate is 94, his respiratory rate is 16, temperature is 97.8, he is 97% on room air. He is 5 feet 9 inches at 116 kg with a body mass index of 38. GENERAL: Quinn is a 62-year-old gentleman, who was sleeping in his bed currently. He was awake and interactive. He is not jaundiced. He is is in no acute distress. LUNGS: Clear to auscultation bilaterally. HEART: Regular rate and rhythm without murmurs. ABDOMEN: Obese, soft and nontender. No palpable masses. LABORATORY DATA: His white blood cell count is 9.6, hemoglobin is 14, mean cell volume is 76, neutrophils 55. Electrolytes unremarkable. His glucose is 160. His COVID is negative. His magnesium is a little low at 1.7. Total bilirubin is 0.2, AST 17, ALT 35, alkaline phosphatase 94, albumin is 3.8, lipase is 194. RADIOGRAPHIC STUDIES: CT scan of the abdomen and pelvis is performed and he has cholelithiasis, may be one stone at the neck of the cystic duct. He has some pericholecystic stranding. He has some mild gallbladder distention. The common bile duct is unremarkable. He has gastric varices. ASSESSMENT AND PLAN: Quinn is a 62-year-old gentleman, who presents with what appears to be acute cholecystitis and cholelithiasis. 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 He said he has done almost all of his evaluations through [facility] in [place], [place]. However, he did visit with the medical oncologist, Dr. Cardenas at the [facility] in [place], [place]. It sounds like they were using the endoscopic ultrasound and they have resected several of these tumors. It sounds like he was told not to remove the stomach. He is not aware of any Electronically Signed By: OMAR MORALES MD 05/26/22 0747 PATIENT NAME: QUINN SAUL CONSULTATION DATE OF : 60 REPORT #: [id number] PHYSICIAN: OMAR MORALES MD PCP: QUINN LAY MD REPORT IS CONFIDENTIAL AND NOT TO BE RELEASED WITHOUT AUTHORIZATION [facility] [address] [place] [address] Signed other tumors in his body. Why he has these new gastric varices is unclear. At this point, we are going to track down some additional information, we will have our medical service see him, especially with respect to his diabetes and leave him on some antibiotics. He and his are quite comfortable, they need to travel down to [place] or up to [place] for a specialist. They have expressed understanding and agreed with the above plan. Omar Morales MD ALB/MODL /[id number] cc: MD Omar Cleveland MD Copies: QUINN LAY MD, ANDREW L MD ~ Electronically Signed By: OMAR MORALES MD 05/26/22 0747 PATIENT NAME: QUINN SAUL CONSULTATION DATE OF : 60 REPORT #: [id number] PHYSICIAN: OMAR MORALES MD PCP: QUINN LAY MD REPORT IS CONFIDENTIAL AND NOT TO BE RELEASED WITHOUT AUTHORIZATION
[2022-05-26] MEDS ORDERED: DOXYCYCLINE IR-40 MG PO (08:31)
[2022-05-26] MEDS ORDERED: GLIMEPIRIDE4 MG PO (08:32)
[2022-05-26] MEDS ORDERED: METFORMIN HCL500 M1 PO (08:33)
[2022-05-26] MEDS ORDERED: TAMSULOSIN HCL0.4 MG PO (08:33)
[2022-05-26] MEDS ORDERED: JARDIANCE10 MG PO (08:34)
[2022-05-26] MEDS ORDERED: PHENTERMINE H37.5 M1 PO (08:35)
[2022-05-26] MEDS ORDERED: PIOGLITAZONE HC45 MG PO (08:36)
[2022-05-26] MEDS ORDERED: TRULICITY1.5 MG/0.5 SUB-Q (08:37)
[2022-05-26 08:57] VITALS: BP 105/54
--- NOTE | 2022-05-26 12:45 | EKG ---
[facility] [address] [facility] [place], [place] [address] Signed Sinus rhythm with 1st degree AV block Right bundle branch block Abnormal ECG No previous ECGs available Confirmed by Will Ocasio MD () on 05/26/2022 12:45:04 PM Electronically Signed By: WILL OCASIO MD 05/26/22 1245 PATIENT NAME: SADIA SAUL K[place]IA Electrocardiogram DATE OF : 60 PHYSICIAN: WILL OCASIO MD REPORT #: [id number] REPORT IS CONFIDENTIAL AND NOT TO BE RELEASED WITHOUT AUTHORIZATION
[2022-05-26 13:17] VITALS: BP 101/54
[2022-05-26 17:44] VITALS: BP 112/68
[2022-05-26 20:02] VITALS: BP 101/42
[2022-05-27 05:23] VITALS: BP 150/78
[2022-05-27 09:33] VITALS: BP 129/54
[2022-05-27 14:30] VITALS: BP 143/81
[2022-05-27] MEDS ORDERED: HYDROCODON-ACE1 EAC8 PO (15:03)
--- NOTE | 2022-05-27 15:13 | OR ---
[facility] [address] [place], [place] [address] Signed DATE OF OPERATION: 05/27/2022 SURGEON: Omar Morales MD PREOPERATIVE DIAGNOSIS: Acute on chronic cholecystitis with cholelithiasis. POSTOPERATIVE DIAGNOSES: 1. Acute on chronic cholecystitis with cholelithiasis. 2. Micronodular liver. PROCEDURE: Laparoscopic cholecystectomy with intraoperative cholangiogram. ESTIMATED BLOOD LOSS: None. FINDINGS: Quinn had several small 3-4 mm stones in his gallbladder. Indeed, one was in the beginning of the cystic duct which we milked out with our [place] dissectors. The intraoperative cholangiogram was otherwise unremarkable. He does have a micronodular somewhat firm liver. 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 Followup endoscopic ultrasound as well as his octreotide scans have all been negative. Apparently, this all started with hiatal hernia, acid reflux and subsequently Muro's esophagus. He had awakened with rather severe pain in his right upper quadrant. It made him vomit about five times. He came to the emergency room for evaluation. He seemed to be tender in the epigastric right upper quadrant areas. White count was normal. Mean cell volume is low and his liver function tests were not particularly concerning. Lipase was unremarkable. CT scan of the abdomen and pelvis was performed. It looked like he had some mild gallbladder wall thickening with some stones, possibly a stone starting into the cystic duct as well as some mild pericholecystic stranding with an unremarkable common bile duct. The radiologist had mentioned re-demonstration of gastric varices. We checked with our radiologist the following day and it does not appear that he has any gastric varices. We had to pull his records at [facility] to confirm his neuroendocrine tumor of the stomach. He actually had three small tumors all removed, all under 10 mm. We had admitted him overnight. He did well on Rocephin and Flagyl along with some Demerol. We did have our Electronically Signed By: OMAR MORALES MD 05/27/22 1513 PATIENT NAME: QUINN SAUL OPERATIVE REPORT DATE OF : 60 REPORT #: [id number] PHYSICIAN: OMAR MORALES MD PCP: QUINN LAY MD REPORT IS CONFIDENTIAL AND NOT TO BE RELEASED WITHOUT AUTHORIZATION [facility] [address] [place] [id number] Signed medical service see him with respect to his medical issues including the diabetes. Once we sorted out all these issues, we decided to take him to the operating room today. We put him on the schedule to follow. I gave him our brochure on the gallbladder. We reviewed that together in detail. He understands the location and function of the gallbladder. We discussed laparoscopic versus open cholecystectomy. There is risk of surgery including, but not limited to bleeding, infection, scarring, change in contour of the skin, damage to the bowel, damage to the main bile duct, incisional hernias and other unforeseen comorbidities. We had reviewed the expected intraop and postop course. He had expressed understanding and wished to proceed. PROCEDURE NOTE: Quinn was taken into our operating room and placed in the supine position under general endotracheal tube anesthesia. He was already on preoperative antibiotics. He was on preoperative Lovenox. SCDs were utilized. He was prepped and draped in the usual sterile fashion. All trocars were placed in their usual positions under direct visualization of the camera without difficulty. We had taken pictures throughout for photodocumentation. He is a moderately large man. We did have an additional nurse scrub in for part of the case to help hold the gallbladder up and out of the way. We dissected out the triangle of Calot carefully and slowly. Several clips have been put on the cystic artery and it was divided. We opened the cystic duct right next to the gallbladder and indeed we had one small 3-4 mm stone that we removed. The intraoperative cholangiocatheter was inserted into the cystic duct. The intraoperative cholangiogram was then performed. We did not see any filling ducts throughout the biliary tree and the contrast flowed quite nicely into the duodenum. We secured the cystic duct stump with a PDS Endoloop and two clips were placed on the cystic duct stump to dexter its location. We then very slowly and carefully removed the gallbladder from the gallbladder fossa with the help of the cautery. We noticed that there was some edema in his gallbladder wall. The liver is also a bit micronodular and it is a bit firm. We placed our gallbladder into an EndoCatch bag. The right upper quadrant was irrigated and suctioned out until clear. We used our laparoscopic suturing device to pass 0-Vicryl suture on either side of the fascia of the subxiphoid trocar site. This was tied down to close this fascia primarily. After this, the gas was allowed to escape and all the trocars were removed. The gallbladder was passed off on the back table for photodocumentation by our circulating nurse. We closed the fascia at the supraumbilical trocar site with interrupted [id number] and simple 0-Vicryl sutures. Local anesthetic was injected into all trocar sites. Each trocar site was irrigated and suctioned out until clear. The skin and dermis of each trocar site were closed with interrupted 3-0 subcuticular Monocryl sutures. Dry gauze and tape was applied to all incisions. Quinn was awakened from his anesthesia, extubated in the OR, and taken to the recovery room in stable condition. Electronically Signed By: OMAR MORALES MD 05/27/22 1513 PATIENT NAME: QUINN SAUL PILLO OPERATIVE REPORT DATE OF : 60 REPORT #: [id number] PHYSICIAN: OMAR MORALES MD PCP: QUINN LAY MD REPORT IS CONFIDENTIAL AND NOT TO BE RELEASED WITHOUT AUTHORIZATION [address] [address] Signed MD ZACK Brown/JIMMY /[id number] cc: MD Jaylen Jenkins Rai, MD Michael Wilcox, MD Andrew L Bower, MD Copies: OMAR MORALES MD ~ Electronically Signed By: OMAR MORALES MD 05/27/22 1513 PATIENT NAME: DORYSQUINN OPERATIVE REPORT DATE OF : 60 REPORT #: [id number] PHYSICIAN: OMAR MORALES MD PCP: QUINN LAY MD REPORT IS CONFIDENTIAL AND NOT TO BE RELEASED WITHOUT AUTHORIZATION
[2022-05-27 16:21] VITALS: BP 143/84
--- NOTE | 2022-05-29 12:42 | PATH ---
[facility] [address] [facility] [place], [place] [address] Signed SPECIMEN(S): A GALLBLADDER SPECIMEN SOURCE: A. GALLBLADDER CLINICAL HISTORY: Acute cholecystitis and cholelithiasis. FINAL PATHOLOGIC DIAGNOSIS: Gallbladder, cholecystectomy: - Chronic calculous cholecystitis. JVR:[facility]:C2NR MICROSCOPIC EXAMINATION: Histologic sections of all submitted blocks are examined by light microscopy. These findings, together with the gross examination, support the pathologic diagnosis. GROSS DESCRIPTION: The specimen, labeled and designated "Rosa M, Tiffany.," and designated on the requisition "gallbladder," is received in formalin and consists of Specimen: Previously opened gallbladder. Dimensions: 8.5 x 4.5 x 2.6 cm. Serosa: Green-anderson, smooth. Cystic Duct: Contains calculi. Calculi: Numerous black, irregularly shaped calculi (0.1 to 0.4 cm in greatest dimension and 3.0 x 2.3 x 0.4 cm in aggregate). Mucosa: Green and velvety. Wall thickness: 0.8 cm. Lymph node: No pericystic lymph nodes are grossly identified. Additional: None. Telemetry Nurse sections are submitted in (A1). AC (under the direct supervision of a pathologist) The Gross Description was prepared using a voice recognition system. The report was reviewed for accuracy; however, sound-alike word errors, addition and/or deletions may occur. If there is any question about this report, please contact Client Services. PERFORMING LABORATORY: The technical component was performed by [facility], [address] [place] [id number] (CLIA# [id number]). Professional interpretation was PATIENT NAME: SADIA SAUL PATHOLOGY DATE OF : 60 REPORT #: [id number] PHYSICIAN: OXANA PATHOLOGY PCP: SADIA LAY MD REPORT IS CONFIDENTIAL AND NOT TO BE RELEASED WITHOUT AUTHORIZATION [facility] [address] [place], [place] [address] Signed performed by [facility] - [address] [place] [address] (CLIA#: [id number]). Diagnostician: Ole Dawson MD Pathologist Electronically Signed 05/29/2022 Copies: ~ PATIENT NAME: SADIA SAUL PATHOLOGY DATE OF : 60 REPORT #: [id number] PHYSICIAN: [facility]XANA PATHOLOGY PCP: SADIA LAY MD REPORT IS CONFIDENTIAL AND NOT TO BE RELEASED WITHOUT AUTHORIZATION
== END 2022-05-27 18:00 | disposition home or self-care (01) ==
LOC: ED 01:39 → MS 01:41
PROVIDERS: ADMIT Colon & Rectal Surgery; ATTEND Colon & Rectal Surgery
PROC: BF121ZZ Fluoroscopy of Gallbladder using Low Osmolar Contrast (ICD-10-PCS; 2022-05-27)
PROC: 0FT44ZZ Resection of Gallbladder, Percutaneous Endoscopic Approach (ICD-10-PCS; principal; 2022-05-27 11:00)
DX: K80.12 Calculus of gallbladder with acute and chronic cholecystitis without obstruction (principal); E66.9 Obesity, unspecified; K76.89 Other specified diseases of liver; E11.9 Type 2 diabetes mellitus without complications; Z20.822 Contact with and (suspected) exposure to COVID-19; Z87.891 Personal history of nicotine dependence; Z88.5 Allergy status to narcotic agent
CPT/HCPCS: 00790; 36415; 74177; 74300; 76705; 80053; 81003; 83690; 83735; 84100; 85025; 93005; 93010; 96365; 96375; A9270; C9113; C9803; G0378; J0696; J1100; J1170; J1650; J1885; J2001; J2175; J2405; J2704; J3010; J3475; J7121; Q9967; U0003